=== PATIENT | male | born 1990 | race Caucasian/White ===

== ENCOUNTER 2017-03-26 18:30 | Inpatient (IN) | payer OTHER ==
[~2017-03-26] VITALS: Ht 172.7 cm; Wt 74.7 kg
[~2017-03-26 18:30] MED LIST: ADDE10XR; CLON.1; PROZ40CA; RISP1; SYNT112T
[2017-03-26 18:59] VITALS: BP 119/86; PULSE 97; RESP 20; TEMP 98.1; O2SAT 100
[2017-03-26 19:04] VITALS: BP 119/86; PULSE 108; RESP 18; TEMP 98.1; O2SAT 100
--- NOTE | 2017-03-26 19:25 | PD ---
HPI Chief Complaint: Psychiatric Symptoms Time Seen by Provider: 19:10 Travel History International Travel<30 days: No Contact w/Intl Traveler<30days: No Traveled to known affect area: No [facility] Past Medical History Diminished Hearing: No Psychiatric: Yes Tetanus Vaccination: Unknown Influenza Vaccination: No Social History Alcohol Use: No Tobacco Use: No Substance Use: No Allergies-Medications (Allergen,Severity, Reaction): Coded Allergies: Penicillin (Verified Allergy, Severe, RASH, 04/30/07) Reported Meds & Prescriptions Reported Meds & Active Scripts Active Reported Synthroid (Levothyroxine Sodium) 112 Mcg Tab Catapres (Clonidine HCl) 0.1 Mg Tab Prozac (Fluoxetine HCl) 40 Mg Cap Risperdal (Risperidone) 1 Mg Tab Adderall Xr (Amphetamine/Dextroamphetamine) 10 Mg Cap Data Data Last Documented VS Vital Signs Date Time Temp Pulse Resp B/P Pulse Ox O2 Delivery O2 Flow Rate FiO2 03/26/17 19:04 18 03/26/17 19:04 98.1 108 119/86 100 Room Air Aury Barbosa Mar 26, 2017 19:24
[2017-03-26 20:26] LABS: BASOPHIL # 0.1 TH/MM3 (0-0.2); BASOPHIL % 0.4 % (0.0-2.0); EOSINOPHIL # 0.2 TH/MM3 (0-0.4); EOSINOPHIL % 1.2 % (0.0-4.0); HEMATOCRIT 47.4 % (39.0-51.0); HEMO FLAGS DIFF FINAL; LYMPH % 13.1 % (9.0-44.0); MEAN CELL VOLUME 79.2 FL (80.0-100.0); MEAN CORPUSCULAR HEMOGLOBIN 26.8 PG (27.0-34.0); MEAN CORPUSCULAR HGB CONC 33.9 % (32.0-36.0); MONO % 7.5 % (0.0-8.0); NEUT % 77.8 % (16.0-70.0); PLATELET COUNT 276 TH/MM3 (150-450); RED BLOOD COUNT 5.99 MIL/MM3 (4.50-5.90); RED CELL DISTRIBUTION WIDTH 14.2 % (11.6-17.2); WHITE BLOOD COUNT 15.4 TH/MM3 (4.0-11.0)
[2017-03-26 20:50] LABS: ANION GAP 8 MEQ/L (5-15); AST (GOT) 16 U/L (15-37); BICARBONATE 23.6 MEQ/L (21.0-32.0); BLOOD UREA NITROGEN 14 MG/DL (7-18); CHLORIDE 110 MEQ/L (98-107); GLOMERULAR FILTRATION RATE 82 ML/MIN (>89); POTASSIUM 3.7 MEQ/L (3.5-5.1); SODIUM (NA) 142 MEQ/L (136-145)
[2017-03-26 20:51] LABS: ALT (GPT) 25 U/L (12-78)
[2017-03-26 20:53] LABS: ALKALINE PHOSPHATASE 77 U/L (45-117); TOTAL BILIRUBIN ADULT 0.7 MG/DL (0.2-1.0)
[2017-03-26 21:11] LABS: ACETAMINOPHEN LESS THAN 2.0 MCG/ML (10.0-30.0)
--- NOTE | 2017-03-26 21:20 | PD ---
HPI Chief Complaint: Psychiatric Symptoms Time Seen by Provider: 19:10 Travel History International Travel<30 days: No Contact w/Intl Traveler<30days: No Traveled to known affect area: No History of Present Illness HPI Patient is a 27 year old male who comes in because he ran away from home. He apparently went to a residential and asked for help. He has history of Aspergers and Bipolar disorder. He has stopped taking his medications a few months ago. He has no medical complaints at this time. His parents are concerned for his safety, and say that his mental status has been slowly worsening. [facility] Past Medical History Diminished Hearing: No Psychiatric: Yes Tetanus Vaccination: Unknown Influenza Vaccination: No Social History Alcohol Use: No Tobacco Use: No Substance Use: No Allergies-Medications (Allergen,Severity, Reaction): Coded Allergies: Penicillin (Verified Allergy, Severe, RASH, 04/30/07) Chicken Meat (Verified Allergy, Mild, 03/27/17) PER MOTHER Reported Meds & Prescriptions Reported Meds & Active Scripts Active Reported Risperdal (Risperidone) 1 Mg Tab 1 Mg PO DAILY PRN Olanzapine 10 Mg Tab 10 Mg PO HS Trihexyphenidyl (Trihexyphenidyl HCl) 2 Mg Tab 2 Mg PO HS Fluvoxamine (Fluvoxamine Maleate) 25 Mg Tab 25 Mg PO DAILY [place] Carbonate 600 Mg Cap 600 Mg PO HS Synthroid (Levothyroxine Sodium) 112 Mcg Tab Review of Systems Except as stated in HPI: all other systems reviewed are Neg General / Constitutional: No: Fever, Chills Eyes: No: Blurred Vision HENT: No: Headaches Cardiovascular: No: Chest Pain or Discomfort Respiratory: No: Shortness of Breath Gastrointestinal: No: Nausea, Vomiting Musculoskeletal: No: Myalgias Skin: No Rash Neurologic: No: Weakness Physical Exam Narrative GENERAL: Awake and alert, no acute distress. SKIN: Focused skin assessment warm/dry. HEAD: Atraumatic. Normocephalic. EYES: Pupils equal and round. No scleral icterus. ENT: Mucous membranes pink and moist. NECK: Trachea midline. No JVD. CARDIOVASCULAR: Regular rate and rhythm. No murmur appreciated. RESPIRATORY: No accessory muscle use. Clear to auscultation. Breath sounds equal bilaterally. GASTROINTESTINAL: Abdomen soft, non-tender, nondistended. MUSCULOSKELETAL: No obvious deformities. No clubbing. No cyanosis. No edema. NEUROLOGICAL: Awake and alert. No obvious cranial nerve deficits. Motor grossly within normal limits. Normal speech. PSYCHIATRIC: Actively insight, delusional Data Data Last Documented VS Vital Signs Date Time Temp Pulse Resp B/P Pulse Ox O2 Delivery O2 Flow Rate FiO2 03/27/17 05:29 83 18 126/75 99 Room Air 03/26/17 19:04 98.1 Orders Complete Blood Count With Diff (03/26/17 19:50) Comprehensive Metabolic Panel (03/26/17 19:50) Psych Screen (03/26/17 19:50) Drug Screen, Random Urine (03/26/17 19:50) Alcohol (Ethanol) (03/26/17 19:50) Salicylates (Aspirin) (03/26/17 19:50) Tylenol (Acetaminophen) (03/26/17 19:50) Acetaminophen (Tylenol) (03/27/17 05:45) Magnesium Hydroxide Liq (Milk Of Magnesi (03/27/17 05:45) Al-Mag Hy-Si 40-40-4 Mg/Ml Liq (Mag-Al P (03/27/17 05:45) Lorazepam (Ativan) (03/27/17 06:00) Lorazepam Inj (Ativan Inj) (03/27/17 06:00) Temazepam (Restoril) (03/27/17 06:00) Olanzapine (Zyprexa) (03/27/17 21:00) Admit Order (Ed Use Only) (03/27/17 05:48) Admit To Inpatient Psych (03/27/17 ) Vital Signs (Adult) ALFRED.Q12H.E (03/27/17 05:48) Activity Oob Ad Kathleen (03/27/17 05:48) Level Of Observation (Psych) (03/27/17 05:48) Diet Regular Basic (03/27/17 Breakfast) Lipid Profile (03/28/17 06:00) Hemoglobin (Hgb) A1c (03/28/17 06:00) Willard (Li) (03/28/17 06:00) Thyroid Stimulating Hormone (03/27/17 05:50) Free Thyroxine (T4) (03/27/17 05:50) Labs Laboratory Tests Test 03/26/17 03/26/17 20:08 20:58 White Blood Count 15.4 TH/MM3 Red Blood Count 5.99 MIL/MM3 Hemoglobin 16.1 GM/DL Hematocrit 47.4 % Mean Corpuscular Volume 79.2 FL Mean Corpuscular Hemoglobin 26.8 PG Mean Corpuscular Hemoglobin 33.9 % Concent Red Cell Distribution Width 14.2 % Platelet Count 276 TH/MM3 Mean Platelet Volume 8.4 FL Neutrophils (%) (Auto) 77.8 % Lymphocytes (%) (Auto) 13.1 % Monocytes (%) (Auto) 7.5 % Eosinophils (%) (Auto) 1.2 % Basophils (%) (Auto) 0.4 % Neutrophils # (Auto) 12.0 TH/MM3 Lymphocytes # (Auto) 2.0 TH/MM3 Monocytes # (Auto) 1.2 TH/MM3 Eosinophils # (Auto) 0.2 TH/MM3 Basophils # (Auto) 0.1 TH/MM3 CBC Comment DIFF FINAL Differential Comment Sodium Level 142 MEQ/L Potassium Level 3.7 MEQ/L Chloride Level 110 MEQ/L Carbon Dioxide Level 23.6 MEQ/L Anion Gap 8 MEQ/L Blood Urea Nitrogen 14 MG/DL Creatinine 1.07 MG/DL Estimat Glomerular Filtration 82 ML/MIN Rate Random Glucose 98 MG/DL Calcium Level 9.4 MG/DL Total Bilirubin 0.7 MG/DL Aspartate Amino Transf 16 U/L (AST/SGOT) Alanine Aminotransferase 25 U/L (ALT/SGPT) Alkaline Phosphatase 77 U/L Total Protein 7.5 GM/DL Albumin 4.3 GM/DL Salicylates Level LESS THAN 1.7 MG/DL Acetaminophen Level LESS THAN 2.0 MCG/ML Ethyl Alcohol Level LESS THAN 3 MG/DL Free Thyroxine 1.58 NG/DL Thyroid Stimulating Hormone 0.376 uIU/ML 3rd Gen Urine Opiates Screen NEG Urine Barbiturates Screen NEG Urine Amphetamines Screen NEG Urine Benzodiazepines Screen NEG Urine Cocaine Screen NEG Urine Cannabinoids Screen NEG MDM Medical Decision Making Medical Screen Exam Complete: Yes Emergency Medical Condition: Yes Medical Record Reviewed: Yes Differential Diagnosis Psychosis versus electrolyte abnormality versus drug intoxication Narrative Course Patient is a 27-year-old male who comes in and delusional state. Exam shows no acute abnormalities. Patient has no medical complaints. Labs sent show no acute abnormalities. Patient will be medically cleared for psychiatric evaluation. Disposition per psychiatry. Diagnosis Primary Impression: Psychosis Qualified Code: F29 - Psychosis, unspecified psychosis type Condition: Stable Nathaly Saavedra MD Mar 26, 2017 21:20
[2017-03-26 21:33] LABS: AMPHETAMINE, URINE NEG (NEG); BARBITURATES, URINE NEG (NEG); COCAINE, URINE NEG (NEG)
[2017-03-26 23:20] VITALS: BP 115/78; PULSE 98; RESP 18; O2SAT 99
[2017-03-27] MEDS ORDERED: LITH600C PO (05:07)
[2017-03-27] MEDS ORDERED: OLAN10TA PO (05:07)
[2017-03-27] MEDS ORDERED: FLUV25TA PO (05:07)
[2017-03-27] MEDS ORDERED: TRIH2 PO (05:07)
[2017-03-27] MEDS ORDERED: RISP1 PO (05:07)
[2017-03-27 05:29] VITALS: BP 126/75; PULSE 83; RESP 18; O2SAT 99
[2017-03-27] MEDS ORDERED: ACETAMINOPHEN 325 MG TAB PO PRN (05:45)
[2017-03-27] MEDS ORDERED: ALUMINUM/MAGNESIUM/SIMETH 30 ML CUP PO PRN (05:45)
[2017-03-27] MEDS ORDERED: MAGNESIUM HYDROXIDE SUSP 30 ML CUP PO PRN (05:45)
[2017-03-27] MEDS ORDERED: LORazepam 2 MG/ML VIAL IM PRN (06:00)
[2017-03-27 07:00] VITALS: BP 122/83; PULSE 74; RESP 18; TEMP 98; O2SAT 100
[2017-03-27 07:18] LABS: FREE T4 1.58 NG/DL (0.76-1.46)
[2017-03-27 08:57] VITALS: BP 122/83; PULSE 74; RESP 18; TEMP 98; O2SAT 100
[2017-03-27] MEDS ORDERED: fluvoxaMINE MALEATE 50 MG TAB PO SCH (09:00)
[2017-03-27] MEDS: LORazepam 1 MG TAB PO PRN ×2 (10:34→20:58)
[2017-03-27 17:39] VITALS: BP 121/77; PULSE 97; RESP 18; TEMP 98.8; O2SAT 99
--- NOTE | 2017-03-27 19:33 | MH ---
cc: DIXIE ROBERTSON DATE OF ADMISSION 03/27/2017 PRESENTING CHIEF COMPLAINT AND HISTORY OF PRESENT ILLNESS This 27-year-old white male was brought to the emergency room voluntarily because of increasing agitation, delusions. He reportedly carries a diagnosis of "bipolar affective disorder, Asperger's" and had stopped taking his medications three months ago without his parents knowledge and reportedly has been decompensating. He took off from home and knocked at the door of a alf who called for assistance and he was brought to the emergency room of this hospital where the Bush Act was initiated by the emergency room physician. In the emergency room, he was evaluated by psychiatric screener and was observed to be very disorganized, rambling, somewhat agitated, hyper-verbal and delusional believing that his medications were poisoned, etc. The case was discussed with me and it was felt he needed to be hospitalized for further assessment and treatment. Prior to this evaluation, case was discussed with the nursing staff who indicated initially upon admission he was somewhat agitated and was given injection of Ativan to which he responded well. He has not exhibited any aggressive or self-destructive behavior nor has he made any threats of harm to self or others. Electronic medical records were reviewed. He has no history of admission to this unit. At the time of this evaluation. Mr. Corrigan was calm, although hyper-verbal, over elaborate in his responses to questions. When asked about his understanding of the reason for this hospitalization, he responded "I knocked at the door of a alf. I show them ,my identity and asked for help". He vaguely mentioned that he had arguments with his mother and stepfather with whom he lives because "I felt they were kind of abusing me because my mom said that I had to live by her rules so I took off". However, he later mentioned that since being in the hospital he has realized that if he was to live in their home he has to follow their rules. He could not identify clearly as to what rules he found difficult to follow at home. He acknowledged that he had discontinued all his medications about three months ago. When asked what the reason, he was quite vague "I could be happier, but they were making me like I had no emotions. I was like a vegetable". When further explored, he reluctantly acknowledged experiencing "mood swings" which he was initially quite vague but when pursued he described them as follows: "Sometimes I am high like up there. I talk too much. I feel very happy like my mind is going too fast and then I am down there. That is when I do not feel like doing anything. I feel sad. I cry. Crying is not bad because it lets your emotion out. Am I right?". He denied ever experiencing delusions, hypersexuality, spending sprees or auditory hallucinations during "the highs". When asked as to how he has been feeling lately, he stated "kind of high, but not manicky". He acknowledged that he has not been sleeping too well "I have been sleeping only a few hours". He denied any change in his appetite, memory or concentration. He denied ever entertaining suicidal or homicidal ideations. He denied any previous suicide attempt or any history of violence. Further exploration did not reveal any other significant psychosocial stressors. PAST PSYCHIATRIC HISTORY His first psychiatric intervention was when he was 9 years old for what he described as "ADHD" for which he was put on a stimulant. According to him, this made his mood swings worse and he discontinued it. He denied any previous psychiatric hospitalization. He was also very vague about the outpatient psychiatric followup. He stated that he has been on his current medications, i.e., lithium, Zyprexa, Risperdal, Luvox and Artane for over 10 years but claimed that they have been managed by his primary care physician. He could not give any clear explanation as to why he has not been under psychiatric treatment all these years. PAST MEDICAL HISTORY He has history of hypothyroidism for which he is on Synthroid 112 mcg daily. He denied any other known medical illness. Specifically, he denied any history of cardiac problem, head injury or seizures. He is ALLERGIC TO PENICILLIN and CHICKEN MEAT. MEDICATIONS Prior to admission, 1. Risperdal 1 mg daily p.r.n. 2. Zyprexa 10 mg p.o. q.h.s. 3. Trihexyphenidyl 2 mg q.h.s. 4. Luvox 25 mg daily. 5. [place] carbonate 600 mg p.o. q.h.s., 6. Synthroid 112 mcg daily. FAMILY HISTORY His parents when he was 4 years old. His mother remarried when he was 12 years old. His mother is a professor at [employer] and his stepfather is a salesman. He has two half brothers and one full sister. According to him, his biological father suffers from "bipolar" and his mother suffers from "depression". He denied any family history of substance abuse. PERSONAL AND SOCIAL HISTORY He grew up in [place] and, after finishing high school, obtained a bachelor's degree. He does not have much of a work history except for four months he worked for [employer] in [place]. He denied being on disability. He lives with his mother and stepfather who support him. He denied any alcohol or drug abuse. He denied any history of physical or sexual trauma. He denied any history of involvement with the law. CLINICAL OBSERVATION/MENTAL STATUS EXAM At the time of this evaluation, Mr. Corrigan presented as a somewhat poorly groomed, unkempt white male who looked his stated age. He displayed poor eye contact and talked in a soft monotonous voice. His responses to questions were over-elaborate and overinclusive and, as such, direct questions had to be asked to obtain specific information from him. No psychomotor agitation was noticed at this time. No overt anger or hostility was noticed. His affect was blunted, appropriate. Subjectively, he described his mood as "I have been up there but not manicky". Thought processes revealed circumstantiality and tangentiality. As described earlier, he remains delusional about medication being poistoned. No auditory or visual hallucinations were noticed or reported. He denied any suicidal or homicidal ideations or intent at this time. He denied any previous suicide attempts or any history of violence. Cognitive functions - he was alert, oriented to time, place, person and situation. Memory - immediate he could do 5 digits forward, 4 digits backward. Recent he could recall 3/3 objects after 10 minutes. Remote he could recall presidents up to President Obama. His attention and concentration was good. He could do serial sevens all the way up to two. His judgment and insight was felt to be fair. REVIEW OF SYSTEMS He denied any diarrhea, vomiting or abdominal pain. He denied any dysuria, hematuria or frequency. He denied any chest pain, palpitation, dyspnea on exertion. He denied muscle weakness, numbness or any history of seizures. PHYSICAL EXAMINATION Physical examination was not done as this has been done in the emergency room. No acute medical issues identified. No gross neurological deficits noticed at this time. DIAGNOSTIC IMPRESSION [place] I: Bipolar affective disorder, hypomanic phase. [place] II: Asperger's syndrome. [place] III: Hypothyroidism. [place] IV: Severity of psychosocial stressors moderate i.e. chronic psychiatric illness, limited financial resources. [place] V: Current GAF score 40. FORMULATION AND TREATMENT PLAN Based on this evaluation and the background information available to me at this time, Mr. Corrigan is exhibiting hypomanic phase of bipolar affective disorder as evidenced by psychomotor agitation, hyperverbosity, racing thoughts, circumstantiality and tangentiality, delusions. His current decompensation is due to noncompliance with medications. He was thoroughly educated about the role of medications in his overall treatment plan, especially to prevent rehospitalization. He seemed to understand and accepted to continue on them. As such, he will be restarted on lithium and Zyprexa. Luvox will be discontinued. Simultaneously, he will be involved in individual psychotherapy primarily supportive and educative in nature. He will participate in various other unit activities i.e. occupational therapy, recreational therapy, group therapy. IDENTIFIED PROBLEMS 1. Psychosis. 2. Noncompliance. ASSETS 1. He is verbal. 2. Reasonably good physical health. 3. Supportive parents. His estimated length of stay is 5-7 days. MD RENA Charles/ /6:27 PM /7:01 PM
[2017-03-27] MEDS: OLANZapine 10 MG TAB PO SCH (20:57)
[2017-03-27] MEDS: LITHIUM CARBONATE 300 MG CAP PO SCH (20:58)
[2017-03-27] MEDS ORDERED: LITHIUM CARBONATE 300 MG CAP PO SCH (21:00)
[2017-03-28] MEDS: LEVOTHYROXINE SODIUM 112 MCG TAB PO SCH (05:46)
[2017-03-28 06:56] VITALS: BP 101/56; PULSE 65; RESP 16; TEMP 98.2; O2SAT 100
[2017-03-28] MEDS: LITHIUM CARBONATE 300 MG CAP PO SCH ×2 (08:47→21:04)
[2017-03-28 17:00] VITALS: BP 129/77; PULSE 95; RESP 17; TEMP 97.4; O2SAT 99
[2017-03-28] MEDS: OLANZapine 10 MG TAB PO SCH (21:00)
[2017-03-29] MEDS: LEVOTHYROXINE SODIUM 112 MCG TAB PO SCH (05:30)
[2017-03-29 06:07] VITALS: BP 112/55; PULSE 81; RESP 18; TEMP 97.2; O2SAT 100
[2017-03-29 08:54] LABS: HDL CHOLESTEROL 43.4 MG/DL (40.0-60.0); LDL CHOLESTEROL 69 MG/DL (0-99)
[2017-03-29] MEDS: LITHIUM CARBONATE 300 MG CAP PO SCH ×2 (09:26→21:30)
[2017-03-29 16:33] LABS: HEMOGLOBIN A1a 0.9 %; HEMOGLOBIN A1b 1.6 %; HEMOGLOBIN Ao 86.7 %; HEMOGLOBIN LA1C 1.7 %; HEMOGLOBIN P3 3.5 %
[2017-03-29 17:05] VITALS: BP 137/67; PULSE 99; RESP 18; TEMP 98.7; O2SAT 98
[2017-03-29] MEDS: OLANZapine 10 MG TAB PO SCH (21:30)
[2017-03-29] MEDS: LORazepam 1 MG TAB PO PRN (22:47)
[2017-03-29] MEDS: TEMAZEPAM 15 MG CAP PO PRN (22:50)
[2017-03-30 06:07] VITALS: BP 122/71; PULSE 87; RESP 16; TEMP 97.9; O2SAT 100
[2017-03-30] MEDS: LEVOTHYROXINE SODIUM 112 MCG TAB PO SCH (06:12)
[2017-03-30] MEDS: LITHIUM CARBONATE 300 MG CAP PO SCH ×2 (08:11→21:23)
--- NOTE | 2017-03-30 08:44 | PD.PSY.CON ---
Provisional Diagnosis Admission Date Mar 27, 2017 at 05:51 [place] I. 1. Bipolar disorder, presently manic [place] II. 1. Asperger's disorder [place] V. GAF is 30 presently History of Present Illness Service Psychiatry Consult Requested By Dr. Saeed Reason for Consult Second opinion for involuntary psychiatric hospitalization Primary Care Physician DO [place] Mr. Corrigan is a 27-year-old male with a reported history of bipolar illness and Asperger's disorder who presented to the emergency department after running away from home. ED provider's note indicates that the patient has been nonadherent with medications. Patient is presently admitted under the service of Dr. Saeed, and I have reviewed his documentation. Electronic medical record reviewed; no previous psychiatric contact noted within our system. Patient seen and examined. Chart reviewed. On my examination today, patient presents with pressured, rambling, over inclusive speech. He is somewhat socially awkward, and for example he sits all the way across the room during the interview although there are closer seats available. He says that he came in because he was feeling "anxiety, paranoia, the only way to freedom was getting away from home. I didn't see any other alternative." He does not describe any visual hallucinations but is vague regarding auditory phenomena. He does say that he can "hear stuff behind closed doors without trying to listen." He denies any suicidal or homicidal ideation but says "if someone wanted me , a bullet" could come through this window into his head. Paranoia present. He tells me, "people are going to hurt people behind my back. " Sleep reportedly poor. Neologisms noted. The remainder of the psychiatric ROS is negative. Past psychiatric history: The patient reports a history of bipolar disorder and Asperger's. He is not currently under the care of a psychiatrist he tells me. He denies a history of psychiatric admissions. He reports multiple prior suicide attempts most recently by trying to cut himself with a knife. He launches into an extensive discussion about how to complete suicide by knife. Family history: Patient reports a family history of cluster B personality disorder in his father's side of his family. He says that the autism spectrum disorders run in his mother's side. Chemical dependency history: The patient denies any history of abuse of drugs or alcohol. Social history: The patient reports that he is second in the order. He is unemployed. He has a bachelors in public management and plans to enter into graduate school. He is single with no children. 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 Review of Systems ROS Limitations: Poor Historian Except as stated in HPI: all other systems reviewed are Neg Past Family Social History Coded Allergies: Penicillin (Verified Allergy, Severe, RASH, 04/30/07) Chicken Meat (Verified Allergy, Mild, 03/27/17) PER MOTHER Past Medical History See electronic medical record Reported Medications Risperidone (Risperdal)1 Mg Tab1 Mg PO DAILY PRN (PRN) #30 TAB Ref 0 03/27/17 Olanzapine 10 Mg Tab10 Mg PO HS #60 TAB Ref 0 03/27/17 Trihexyphenidyl 2 Mg Tab2 Mg PO HS #60 TAB Ref 0 03/27/17 Fluvoxamine 25 Mg Tab25 Mg PO DAILY #30 TAB Ref 0 03/27/17 [place] Carbonate 600 Mg [id number] Mg PO HS Ref 0 03/27/17 Levothyroxine Sodium (Synthroid)112 Mcg Tab 04/30/07 Discontinued Reported Medications Clonidine 0.1 mg (Catapres 0.1 mg)0.1 Mg Tab 04/30/07 Fluoxetine Hcl (Prozac)40 Mg Cap 04/30/07 Risperidone (Risperdal)1 Mg Tab 04/30/07 Adderall XR 10 mg 10 Mg Cap 04/30/07 Current Medications Medications (Trade) Dose Ordered Sig/Berta Route Start Time Stop Time Status Last Admin (Tylenol) 650 mg Q4H PRN PO 03/27/17 05:45 (Milk Of Magnesia Liq) 30 ml DAILY PRN PO 03/27/17 05:45 (Mag-Al Plus Susp Liq) 30 ml Q6H PRN PO 03/27/17 05:45 (Ativan) 1 mg Q4H PRN PO 03/27/17 06:00 03/29/17 22:47 (Ativan Inj) 1 mg Q4H PRN IM 03/27/17 06:00 03/27/17 10:55 (Restoril) 30 mg HS PRN PO 03/27/17 06:00 03/29/17 22:50 (ZyPREXA) 10 mg HS PO 03/27/17 21:00 03/29/17 21:30 (Synthroid) 112 mcg DAILY@06 PO 03/28/17 06:00 03/30/17 06:12 ([place] Carbonate) 300 mg BID PO 03/27/17 21:00 03/30/17 08:11 Family History See above Social History See above Patient's Strengths (min. 2) In monitored setting. Verbally fluent. Physical Exam Physical exam completed by ED provider. On my examination today, patient appears to be in no acute physical distress. No motor abnormalities noted. Laboratories and vital signs reviewed: Vital Signs Vital Signs Date Time Temp Pulse Resp B/P Pulse Ox O2 Delivery O2 Flow Rate FiO2 03/30/17 06:07 97.9 87 16 122/71 100 03/27/17 05:29 Room Air Lab Results Item Value Date Time White Blood Count 15.4 TH/MM3 H 03/26/172007 Hemoglobin 16.1 GM/DL 03/26/172007 Platelet Count 276 TH/MM3 03/26/172007 Sodium Level 142 MEQ/L 03/26/172007 Potassium Level 3.7 MEQ/L 03/26/172007 Chloride Level 110 MEQ/L H 03/26/172007 Carbon Dioxide Level 23.6 MEQ/L 03/26/172007 Blood Urea Nitrogen 14 MG/DL 03/26/172007 Creatinine 1.07 MG/DL 03/26/172007 Hemoglobin A1c 5.2 % 03/29/1718 Aspartate Amino Transf (AST/SGOT) 16 U/L 03/26/172007 Alanine Aminotransferase (ALT/SGPT) 25 U/L 03/26/172007 Alkaline Phosphatase 77 U/L 03/26/172007 Thyroid Stimulating Hormone 3rd Gen 0.376 uIU/ML 03/26/172007 Free Thyroxine 1.58 NG/DL H 03/26/172007 [place] Level 0.3 MEQ/L L 03/29/1718 Toxicology negative. Mental Status Examination Patient is casually dressed. He is mildly disheveled but maintaining basic hygiene. He is awake and alert and oriented to person and hospital at least. No motor abnormalities noted. Speech is somewhat pressured and rambling. Language and fund of knowledge seem average. Focus and concentration somewhat scattered. Memory grossly intact on clinical exam. Mood is somewhat anxious and affect is mildly expansive. Thought process circumstantial, at times tangential with some loosening of associations. Paranoia present. Patient describes some possible auditory hallucinations or illusions. No visual or other hallucinatory material. Denies suicidal or homicidal ideation but seems unreliable to contract for safety in his present state. Insight and judgment are poor. Assessment & Plan Problem List: (1) Bipolar affective disorder, manic, mild ICD Code: F31.11 (2) Asperger's disorder ICD Code: F84.5 Assessment & Plan Given the circumstances of the patient's presentation here and his presentation on my examination today and looking at the totality of the case, I concur with Dr. Saeed that the patient meets criteria for involuntary psychiatric hospitalization under the Bush act. I have completed the second opinion paperwork. Further care as per Dr. Saeed. Thank you very much for this consultation. Signing off. Usama Noguera MD Mar 30, 2017 08:44
[2017-03-30] MEDS: LORazepam 1 MG TAB PO PRN (14:10)
[2017-03-30 15:31] VITALS: BP 130/74; PULSE 98; RESP 18; TEMP 98.5; O2SAT 100
[2017-03-30] MEDS: OLANZapine 10 MG TAB PO SCH (21:00)
[2017-03-30] MEDS: TEMAZEPAM 15 MG CAP PO PRN (21:23)
[2017-03-31] MEDS: LEVOTHYROXINE SODIUM 112 MCG TAB PO SCH (05:49)
[2017-03-31 06:04] VITALS: BP 103/56; PULSE 55; RESP 18; TEMP 96.9; O2SAT 100
[2017-03-31] MEDS: LITHIUM CARBONATE 300 MG CAP PO SCH ×2 (08:47→20:52)
--- NOTE | 2017-03-31 14:21 | PD.TTN ---
Present for Treatment Team Treatment Team Staff: Provider (), Nurse (Ronak), Psych Therapist ( Brianna), Occupational Therapist (Dayday ) Patient Problems 1. Discharge planning 2. Medication compliance 3. Knowledge deficit 4. Lack of coping skills Progress Toward Goals Provider Input: Patient has been compliant with medications and showing signs of insight with his diagnosis. Patient is able to identify his paranoia and how he is going to resolves his issues. Patient does present argumentative and is notes that he may not be compliant with his medications after discharge. Patient is focused on discharge and makes that he will make his case in court tomorrow and firmly believes he will discharge. Nurse Input: Patient has been compliant with his medications. There was an issue with his swallowing prior but since it has been resolved, he has no issues taking medications. Patient has no behavioral issues on the unit but it is noted that patient does get somewhat agitated when disagreed with. Psych Therapist Input: Patient is hyperverbal but shows some insight upon his admission. Patient says that he is willing to combat his issues of paranoia with coping skills, like deep breathing and counting to 10. Patint does not seem to believe that he needs medication, though he states his mood is increasing everyday. Patient becomes agitated with MD when discussing possible stay until weekend. Occupational Therapist Input: Patient attends group but needs constant redirection. patient is hyperverbal. Brianna Tejeda RMI Mar 31, 2017 14:21
[2017-03-31 18:09] VITALS: BP 120/74; PULSE 84; RESP 18; TEMP 98; O2SAT 99
[2017-03-31] MEDS: OLANZapine 10 MG TAB PO SCH (20:52)
[2017-04-01] MEDS: LORazepam 1 MG TAB PO PRN (02:41)
[2017-04-01 05:22] VITALS: BP 116/69; PULSE 106; RESP 18; TEMP 98.3; O2SAT 99
[2017-04-01] MEDS: LEVOTHYROXINE SODIUM 112 MCG TAB PO SCH (05:26)
[2017-04-01] MEDS: LITHIUM CARBONATE 300 MG CAP PO SCH ×2 (09:19→21:30)
[2017-04-01 12:16] LABS: AUTOMATED NEUTROPHIL # 8.4 TH/MM3 (1.8-7.7); BASOPHIL # 0.1 TH/MM3 (0-0.2); BASOPHIL % 0.5 % (0.0-2.0); EOSINOPHIL # 0.1 TH/MM3 (0-0.4); EOSINOPHIL % 1.2 % (0.0-4.0); HEMATOCRIT 48.4 % (39.0-51.0); LYMPH % 11.6 % (9.0-44.0); LYMPHOCYTE # 1.2 TH/MM3 (1.0-4.8); MEAN CELL VOLUME 80.9 FL (80.0-100.0); MEAN CORPUSCULAR HEMOGLOBIN 26.5 PG (27.0-34.0); MEAN CORPUSCULAR HGB CONC 32.8 % (32.0-36.0); MONO % 6.7 % (0.0-8.0); PLATELET COUNT 249 TH/MM3 (150-450); RED BLOOD COUNT 5.98 MIL/MM3 (4.50-5.90); RED CELL DISTRIBUTION WIDTH 13.9 % (11.6-17.2); WHITE BLOOD COUNT 10.5 TH/MM3 (4.0-11.0)
[2017-04-01 12:50] LABS: HEMO FLAGS AUTO DIFF
[2017-04-01 12:55] LABS: PLATELET ESTIMATE SMEAR NORMAL (NORMAL); PLATELET MORPHOLOGY CLUMPED (NORMAL); SCAN/DIFF AUTO DIFF CONFIRMED
[2017-04-01 14:18] LABS: ALT (GPT) 26 U/L (12-78); ANION GAP 6 MEQ/L (5-15); AST (GOT) 16 U/L (15-37); BICARBONATE 27.1 MEQ/L (21.0-32.0); BLOOD UREA NITROGEN 12 MG/DL (7-18); CHLORIDE 109 MEQ/L (98-107); GLOMERULAR FILTRATION RATE 106 ML/MIN (>89); POTASSIUM 4.3 MEQ/L (3.5-5.1); SODIUM (NA) 142 MEQ/L (136-145)
[2017-04-01 14:20] LABS: ALKALINE PHOSPHATASE 68 U/L (45-117); TOTAL BILIRUBIN ADULT 0.5 MG/DL (0.2-1.0)
[2017-04-01 18:00] VITALS: BP 110/68; PULSE 80; RESP 18; TEMP 98.6; O2SAT 99
[2017-04-01] MEDS: OLANZapine 10 MG TAB PO SCH (21:00)
[2017-04-01] MEDS: TEMAZEPAM 15 MG CAP PO PRN (21:29)
[2017-04-02] MEDS: LEVOTHYROXINE SODIUM 112 MCG TAB PO SCH (05:31)
[2017-04-02 05:35] VITALS: BP 102/66; PULSE 94; RESP 18; TEMP 98.1; O2SAT 98
[2017-04-02] MEDS: LITHIUM CARBONATE 300 MG CAP PO SCH ×3 (08:55→17:34)
[2017-04-02 18:00] VITALS: BP 154/86; RESP 16; O2SAT 98
[2017-04-02] MEDS: OLANZapine 10 MG TAB PO SCH (21:00)
[2017-04-03 05:30] VITALS: BP 106/62; PULSE 92; RESP 18; TEMP 97.7; O2SAT 100
[2017-04-03] MEDS: LEVOTHYROXINE SODIUM 112 MCG TAB PO SCH (06:00)
[2017-04-03] MEDS: LITHIUM CARBONATE 300 MG CAP PO SCH (08:40)
[2017-04-03] MEDS: MULTIVITAMIN TAB PO SCH (13:12)
[2017-04-03] MEDS: LITHIUM ORAL SOLUTION 300 MG/5 ML CUP PO SCH ×2 (13:12→18:17)
[2017-04-03 18:41] VITALS: BP 120/68; PULSE 81; RESP 16; TEMP 98.1; O2SAT 99
[2017-04-03] MEDS: OLANZapine 10 MG TAB PO SCH (21:00)
[2017-04-03] MEDS: TEMAZEPAM 15 MG CAP PO PRN (21:38)
[2017-04-04 06:18] VITALS: BP 106/66; PULSE 88; RESP 17; TEMP 98.1; O2SAT 100
[2017-04-04] MEDS: LEVOTHYROXINE SODIUM 112 MCG TAB PO SCH (06:28)
[2017-04-04] MEDS: MULTIVITAMIN TAB PO SCH (08:56)
[2017-04-04] MEDS: LITHIUM ORAL SOLUTION 300 MG/5 ML CUP PO SCH ×4 (08:57→18:00)
[2017-04-04 15:27] VITALS: BP 112/59; PULSE 84; RESP 18; TEMP 98.7; O2SAT 100
[2017-04-04] MEDS: OLANZapine 10 MG TAB PO SCH (21:00)
[2017-04-05] MEDS: LEVOTHYROXINE SODIUM 112 MCG TAB PO SCH (06:00)
[2017-04-05 06:35] VITALS: BP 106/57; PULSE 65; RESP 16; TEMP 97.6; O2SAT 97
[2017-04-05] MEDS: MULTIVITAMIN TAB PO SCH (09:27)
[2017-04-05] MEDS: LITHIUM ORAL SOLUTION 300 MG/5 ML CUP PO SCH ×3 (09:28→17:29)
[2017-04-05 17:10] VITALS: BP 113/72; PULSE 82; RESP 18; TEMP 99.5; O2SAT 100
[2017-04-05] MEDS: LORazepam 0.5 MG TAB PO SCH (20:48)
[2017-04-05] MEDS: OLANZapine 10 MG TAB PO SCH (21:00)
[2017-04-06 05:56] VITALS: BP 105/63; PULSE 75; RESP 18; TEMP 98.7
[2017-04-06] MEDS: LEVOTHYROXINE SODIUM 112 MCG TAB PO SCH (06:00)
[2017-04-06] MEDS: MULTIVITAMIN TAB PO SCH (08:35)
[2017-04-06] MEDS: LITHIUM ORAL SOLUTION 300 MG/5 ML CUP PO SCH ×3 (08:35→17:49)
[2017-04-06] MEDS: LORazepam 0.5 MG TAB PO SCH ×2 (08:35→20:58)
[2017-04-06 18:00] VITALS: BP 111/61; PULSE 86; RESP 17; TEMP 98; O2SAT 100
[2017-04-06] MEDS: TEMAZEPAM 15 MG CAP PO PRN (20:58)
[2017-04-06] MEDS: OLANZapine 10 MG TAB PO SCH (20:58)
[2017-04-07 05:27] VITALS: BP 99/58; PULSE 56; RESP 16; TEMP 98.1; O2SAT 97
[2017-04-07] MEDS: LEVOTHYROXINE SODIUM 112 MCG TAB PO SCH (06:10)
[2017-04-07 07:04] LABS: ALT (GPT) 26 U/L (12-78); ANION GAP 6 MEQ/L (5-15); AST (GOT) 10 U/L (15-37); AUTOMATED NEUTROPHIL # 4.4 TH/MM3 (1.8-7.7); BASOPHIL % 0.6 % (0.0-2.0); BICARBONATE 29.3 MEQ/L (21.0-32.0); BLOOD UREA NITROGEN 10 MG/DL (7-18); CHLORIDE 108 MEQ/L (98-107); EOSINOPHIL # 0.4 TH/MM3 (0-0.4); EOSINOPHIL % 5.4 % (0.0-4.0); GLOMERULAR FILTRATION RATE 103 ML/MIN (>89); HEMATOCRIT 47.1 % (39.0-51.0); HEMO FLAGS DIFF FINAL; LYMPH % 23.2 % (9.0-44.0); LYMPHOCYTE # 1.6 TH/MM3 (1.0-4.8); MEAN CELL VOLUME 82.4 FL (80.0-100.0); MEAN CORPUSCULAR HGB CONC 32.8 % (32.0-36.0); NEUT % 62.8 % (16.0-70.0); PLATELET COUNT 222 TH/MM3 (150-450); POTASSIUM 4.2 MEQ/L (3.5-5.1); RED BLOOD COUNT 5.72 MIL/MM3 (4.50-5.90); SODIUM (NA) 143 MEQ/L (136-145); WHITE BLOOD COUNT 7.1 TH/MM3 (4.0-11.0)
[2017-04-07 07:06] LABS: ALKALINE PHOSPHATASE 63 U/L (45-117); TOTAL BILIRUBIN ADULT 0.3 MG/DL (0.2-1.0)
[2017-04-07] MEDS: LITHIUM ORAL SOLUTION 300 MG/5 ML CUP PO SCH ×4 (08:49→21:28)
[2017-04-07] MEDS: MULTIVITAMIN TAB PO SCH (08:50)
[2017-04-07] MEDS: LORazepam 0.5 MG TAB PO SCH ×2 (08:50→21:27)
--- NOTE | 2017-04-07 13:41 | PD.TTN ---
Present for Treatment Team Treatment Team Staff: Provider (Dr. Saeed), Nurse, Psych Therapist (Brianna), Occupational Therapist (Dayday) Patient Problems 1. Discharge planning 2. Medication compliance 3. Knowledge deficit 4. Lack of coping skills Progress Toward Goals Provider Input: Patient is needing psychiatric appointment upon discharge. Patient also is becoming more stablized on medication adjustment. Patient is less hyperverbal and is having more tangetnail and organized thoughts. Psych Therapist Input: Patient is noted to be more calm and is able to organize his thoughts. Patient is still semi compliant with proceeding with his medications after his discharge. Patient was educated on the need to continue to take his medications. Patient states that he is using the support from family and friends to help. Patient is cooperative and calm and needs some redirection. Occupational Therapist Input: Patient actively participates in group and needs some redirection. Brianna Tejeda RMI Apr 07, 2017 13:41
[2017-04-07 18:00] VITALS: BP 120/61; PULSE 96; RESP 17; TEMP 98.2; O2SAT 100
[2017-04-07] MEDS: OLANZapine 10 MG TAB PO SCH (21:00)
[2017-04-08 05:59] VITALS: BP 129/74; PULSE 84; RESP 16; TEMP 97.7; O2SAT 94
[2017-04-08] MEDS: LEVOTHYROXINE SODIUM 112 MCG TAB PO SCH (06:20)
[2017-04-08] MEDS: MULTIVITAMIN TAB PO SCH (08:27)
[2017-04-08] MEDS: LORazepam 0.5 MG TAB PO SCH ×2 (08:27→21:40)
[2017-04-08] MEDS: LITHIUM ORAL SOLUTION 300 MG/5 ML CUP PO SCH ×3 (08:28→21:40)
[2017-04-08 18:00] VITALS: BP 115/62; PULSE 87; RESP 18; TEMP 98.1; O2SAT 100
[2017-04-08] MEDS: OLANZapine 10 MG TAB PO SCH (21:00)
[2017-04-08] MEDS: TEMAZEPAM 15 MG CAP PO PRN (21:40)
[2017-04-09 05:32] VITALS: BP 98/62; PULSE 60; RESP 16; TEMP 98; O2SAT 98
[2017-04-09] MEDS: LEVOTHYROXINE SODIUM 112 MCG TAB PO SCH (06:32)
[2017-04-09] MEDS: LORazepam 0.5 MG TAB PO SCH ×2 (08:52→21:33)
[2017-04-09] MEDS: LITHIUM ORAL SOLUTION 300 MG/5 ML CUP PO SCH ×3 (08:52→21:34)
[2017-04-09] MEDS: MULTIVITAMIN TAB PO SCH (08:52)
[2017-04-09 15:55] VITALS: BP 114/59; PULSE 75; RESP 16; TEMP 98.6; O2SAT 98
[2017-04-09] MEDS: OLANZapine 10 MG TAB PO SCH (21:00)
[2017-04-10 05:32] VITALS: BP_SYST 96; BP_SYST 98; BP_DIAS 53; BP_DIAS 56; PULSE 57; PULSE 72; RESP 16; RESP 18; TEMP 97.9; O2SAT 100; O2SAT 97
[2017-04-10] MEDS: LEVOTHYROXINE SODIUM 112 MCG TAB PO SCH (05:47)
[2017-04-10] MEDS: LORazepam 0.5 MG TAB PO SCH ×2 (09:07→20:57)
[2017-04-10] MEDS: MULTIVITAMIN TAB PO SCH (09:07)
[2017-04-10] MEDS: LITHIUM ORAL SOLUTION 300 MG/5 ML CUP PO SCH ×3 (09:08→20:57)
[2017-04-10 18:00] VITALS: BP 105/59; PULSE 87; RESP 16; TEMP 98.6; O2SAT 100
[2017-04-10] MEDS: OLANZapine 10 MG TAB PO SCH (20:58)
[2017-04-11 05:31] VITALS: BP 97/66; PULSE 85; RESP 18; TEMP 96.4; O2SAT 97
[2017-04-11] MEDS: LEVOTHYROXINE SODIUM 112 MCG TAB PO SCH (06:10)
[2017-04-11] MEDS: MULTIVITAMIN TAB PO SCH (08:52)
[2017-04-11] MEDS: LITHIUM ORAL SOLUTION 300 MG/5 ML CUP PO SCH ×3 (08:53→21:30)
[2017-04-11] MEDS: LORazepam 0.5 MG TAB PO SCH (08:53)
[2017-04-11 18:00] VITALS: BP 130/76; PULSE 107; RESP 18; TEMP 98.1; O2SAT 98
[2017-04-11] MEDS: OLANZapine 10 MG TAB PO SCH (21:00)
[2017-04-11 21:06] LABS: FREE T4 0.99 NG/DL (0.76-1.46)
[2017-04-12 05:15] VITALS: BP 115/70; PULSE 66; RESP 16; TEMP 97.8; O2SAT 97
[2017-04-12] MEDS: LEVOTHYROXINE SODIUM 112 MCG TAB PO SCH (06:14)
[2017-04-12] MEDS: LITHIUM ORAL SOLUTION 300 MG/5 ML CUP PO SCH ×3 (08:15→21:24)
[2017-04-12] MEDS: MULTIVITAMIN TAB PO SCH (08:15)
[2017-04-12 09:26] LABS: ANION GAP 3 MEQ/L (5-15); AST (GOT) 19 U/L (15-37); BICARBONATE 29.7 MEQ/L (21.0-32.0); BLOOD UREA NITROGEN 11 MG/DL (7-18); CHLORIDE 106 MEQ/L (98-107); GLOMERULAR FILTRATION RATE 93 ML/MIN (>89); POTASSIUM 4.1 MEQ/L (3.5-5.1); SODIUM (NA) 139 MEQ/L (136-145)
[2017-04-12 09:28] LABS: ALT (GPT) 34 U/L (12-78)
[2017-04-12 09:30] LABS: ALKALINE PHOSPHATASE 74 U/L (45-117); TOTAL BILIRUBIN ADULT 0.3 MG/DL (0.2-1.0)
[2017-04-12 12:01] LABS: ALT (GPT) 35 U/L (12-78); ANION GAP 5 MEQ/L (5-15); AST (GOT) 19 U/L (15-37); BICARBONATE 28.8 MEQ/L (21.0-32.0); BLOOD UREA NITROGEN 12 MG/DL (7-18); CHLORIDE 108 MEQ/L (98-107); GLOMERULAR FILTRATION RATE 104 ML/MIN (>89); POTASSIUM 4.1 MEQ/L (3.5-5.1); SODIUM (NA) 142 MEQ/L (136-145)
[2017-04-12 12:03] LABS: ALKALINE PHOSPHATASE 72 U/L (45-117); TOTAL BILIRUBIN ADULT 0.2 MG/DL (0.2-1.0)
[2017-04-12 15:47] VITALS: BP 117/72; PULSE 69; RESP 18; TEMP 98.1; O2SAT 98
[2017-04-12 18:00] VITALS: BP 117/72; PULSE 69; RESP 18; TEMP 98.1; O2SAT 98
[2017-04-12] MEDS: OLANZapine 10 MG TAB PO SCH (21:00)
[2017-04-13] MEDS: LEVOTHYROXINE SODIUM 100 MCG TAB PO SCH (05:59)
[2017-04-13 06:00] VITALS: BP 91/51; PULSE 59; RESP 20; TEMP 98.2; O2SAT 98
[2017-04-13] MEDS: MULTIVITAMIN TAB PO SCH (09:16)
[2017-04-13] MEDS: LITHIUM ORAL SOLUTION 300 MG/5 ML CUP PO SCH ×3 (09:16→21:56)
[2017-04-13 18:00] VITALS: BP 115/57; PULSE 79; RESP 18; TEMP 98.2; O2SAT 99
[2017-04-13] MEDS: OLANZapine 10 MG TAB PO SCH (21:00)
[2017-04-14] MEDS: LEVOTHYROXINE SODIUM 100 MCG TAB PO SCH (06:07)
[2017-04-14 06:15] VITALS: BP 98/53; PULSE 57; RESP 18; TEMP 97.9; O2SAT 99
[2017-04-14] MEDS: LITHIUM ORAL SOLUTION 300 MG/5 ML CUP PO SCH ×3 (08:40→20:31)
[2017-04-14] MEDS: MULTIVITAMIN TAB PO SCH (08:40)
--- NOTE | 2017-04-14 16:19 | PD.TTN ---
Present for Treatment Team Treatment Team Staff: Provider (Dr. Saeed), Nurse (Olive), Psych Therapist ( Brianna) Patient Problems 1. Discharge planning 2. Medication compliance 3. Knowledge deficit 4. Lack of coping skills Progress Toward Goals Provider Input: Patient seems to be nearing his baseline and has been compliant with his medications on the unit. The patient is noting side effects, such as hair loss but no behavioral issues. Nurse Input: Patient is compliant with medications and is not having any behavioral issues on the unit. Patient continues to be hyperverbal but has somewhat logical thought process. Psych Therapist Input: Patient continues to be somewhat resistence to taking his medication residential and is easily agitated when mentioning going on disability. Family meeting with patient, along with mother, stepfather and sister noted that patient would return home if he behaves well for the next few days. Family will deepthi patient's behavior to determine whether patient is appropriate to return home. Brianna Tejeda RMI Apr 14, 2017 16:19
[2017-04-14] MEDS: LORazepam 1 MG TAB PO PRN (18:00)
[2017-04-14 19:13] VITALS: BP_SYST 101; BP_SYST 126; BP_DIAS 50; BP_DIAS 67; PULSE 66; PULSE 97; RESP 16; RESP 24; TEMP 98.1; TEMP 98.4; O2SAT 98
[2017-04-14] MEDS: OLANZapine 10 MG TAB PO SCH (20:32)
[2017-04-15 06:05] VITALS: BP 87/48; PULSE 70; RESP 16; TEMP 97.9; O2SAT 100
[2017-04-15] MEDS: LEVOTHYROXINE SODIUM 100 MCG TAB PO SCH (06:21)
[2017-04-15] MEDS: MULTIVITAMIN TAB PO SCH (08:53)
[2017-04-15] MEDS: LITHIUM ORAL SOLUTION 300 MG/5 ML CUP PO SCH ×3 (08:53→21:30)
[2017-04-15 16:30] VITALS: BP 104/55; PULSE 76; RESP 16; TEMP 97.6; O2SAT 99
[2017-04-15] MEDS: LORazepam 1 MG TAB PO PRN (17:36)
[2017-04-15] MEDS: OLANZapine 10 MG TAB PO SCH (21:31)
[2017-04-16 05:38] VITALS: BP 84/50; PULSE 59; RESP 17; TEMP 98.5; O2SAT 99
[2017-04-16] MEDS: LEVOTHYROXINE SODIUM 100 MCG TAB PO SCH (05:54)
[2017-04-16] MEDS: LITHIUM ORAL SOLUTION 300 MG/5 ML CUP PO SCH (08:32)
[2017-04-16] MEDS: MULTIVITAMIN TAB PO SCH (08:32)
[2017-04-16] MEDS ORDERED: LEVO.1 PO (12:06)
[2017-04-16] MEDS ORDERED: LITH300T PO ×2 (12:06)
[2017-04-16] MEDS ORDERED: OLAN10TA PO (12:06)
[2017-04-16] MEDS ORDERED: LITHIUM CARBONATE 300 MG SLOW RELEASE TAB PO SCH ×2 (18:00→21:00)
--- NOTE | 2017-04-19 13:34 | MD ---
cc: DIXIE ROBERTSON M.D. ADMISSION DATE: 03/27/2017 DISCHARGE DATE: 04/16/2017 04/16/2017 ADMISSION DIAGNOSIS [place] I: Bipolar affective disorder, hypomanic phase. [place] II: Asperger syndrome [place] III: Hypothyroidism [place] IV: Severity of psychosocial stressors moderate i.e. chronic psychiatric illness, limited financial resources. [place] V: Current GAF score 40 DISCHARGE DIAGNOSIS Bipolar affective disorder, hypomanic phase. [place] II: Asperger syndrome [place] III: Hypothyroidism [place] IV: Severity of psychosocial stressors moderate i.e. chronic psychiatric illness, limited financial resources. [place] V: Current GAF score 60 HISTORY This 27-year-old white male was brought to the emergency room voluntarily because of increasing agitation, delusions. He carries a diagnosis of bipolar affective disorder and Asperger's disease and has discontinued his medications about three months prior to admission and since then reportedly had been decompensating. While in the emergency room, the Bush ACT was initiated by the emergency room physician. Please refer to my initial evaluation for details. SIGNIFICANT LAB WORK UP CBC with differential repeated on different dates on 04/07, it was unremarkable. CMP was also repeated on different dates and on 04/12 it was unremarkable. T4 is normal. TSH low at 0.168. As such, the dose of Synthroid was reduced from 112 mcg to 100 mcg. Urine drug screen was negative for any illicit substances. Serum lithium level was monitored on different dates and on 04/12 it was 0.8. HOSPITAL COURSE When initially evaluated, Mr. Corrigan was rather hyperverbal displayed circumstantial/tangential thoughts, quite labile and paranoid. Initially, he was also quite agitated requiring use of p.r.n. intramuscular Ativan. He seemed quite ambivalent about his medications especially the lithium which he acknowledged he had taken for many years and had benefited from it. He maintained this ambivalence throughout this hospital stay despite best efforts to educate him. He was offered other alternative medications which he did not wish to try because of one of the other side effects he either had or was going to have. It was only towards the end of this hospital stay when he began to accept the need for him to stay on his current medications and follow up with a psychiatrist if he was to remain out of the hospital. This particular issue I also had discussed with his parents with whom I met and also in the last treatment team meeting two days ago where his parents and his sister also participated. In addition to the role of medication is treatment plan, his placement needs were also discussed. He has continued to have a hostile/depend type of relationship with both parents especially with his mother. He would frequently get angry at them during the visitation. He was reminded of the need to work on this particular issue sincerely if he was to avoid placement in an assisted living facility. He plans to live temporarily with his parents and then find a job and hopefully move on his own. The current combination of medication i.e. lithium, Zyprexa work quite well in the sense that his lability subsided, the paranoia subsided and all his overall attitude and interaction with staff and other patients improved significantly. He did not exhibit any aggressive or self-destructive behavior nor did he verbalize any suicidal or homicidal ideations. As such, it is felt by the treatment team that he has received optimum benefit out of this admission and is ready for discharge. Mr. Corrigan informed me that he had a good visit with his parents yesterday and they feel comfortable about him returning home. The need for outpatient follow up and continuation of psychiatric medications was again emphasized to him and he was quite receptive. His discharge medications are as follows. 1. Synthroid 100 mcg daily 14-day supply. 2. [place] carbonate ER 600 mg q.h.s. 14 days supply, one refill. 3. [place] carbonate ER 300 mg p.o. b.i.d. p.c. 14 days supply, one refill. 4. Zyprexa 15 mg p.o. q.h.s. 14 days supply, one refill. He is to have repeat CBC with differential, CMP, serum lithium level in one week and copies of the results are to be sent to his outpatient psychiatrist at [facility] and his primary care physician. He is also recommended to have individual and family therapy through [facility]. MD RENA Charles/FANY /12:14 PM /1:29 PM
== END 2017-04-16 14:05 | disposition home or self-care (01) | DRG 885 ==
LOC: NEPE 18:30 → NEDA 03-27 05:51 → H270 03-27 06:05 → H260 03-29 14:35
PROVIDERS: ADMIT Psychiatry & Neurology Psychiatry; ATTEND Psychiatry & Neurology Psychiatry
DX: F31.0 Bipolar disorder, current episode hypomanic (principal); Z91.14 Patient's other noncompliance with medication regimen; F84.5 Asperger's syndrome; E03.9 Hypothyroidism, unspecified; Z88.0 Allergy status to penicillin
CPT/HCPCS: 80053; 80061; 80178; 80307; 83036; 84439; 84443; 85025; J2060

== ENCOUNTER 2017-05-26 18:43 | Inpatient (IN) | payer OTHER ==
[~2017-05-26] VITALS: Ht 172.7 cm; Wt 74.7 kg
[~2017-05-26 18:43] MED LIST changes: -ADDE10XR; -CLON.1; +FLUV25TA PO; +LEVO.1 PO; +LITH300T PO; +LITH600C PO; +OLAN10TA PO; -PROZ40CA; -RISP1; +RISP1 PO; +TRIH2 PO
--- NOTE | 2017-05-26 19:05 | PD ---
HPI Chief Complaint: Psychiatric Symptoms Time Seen by Provider: 18:50 Travel History International Travel<30 days: No Contact w/Intl Traveler<30days: No Traveled to known affect area: No History of Present Illness HPI 27-year-old male history of aspergers, bipolar disorder presents under Bush act initiated by the [employer]. According to his paperwork, "while having an episode Kash told his mother that he wanted to kill himself. When I questioned Fortunato about this he did admit to saying it. Evan mother advised he has had this numerous times in the past." History is limited from the patient. He makes bizarre nonsensical statements. It appears that the patient was hospitalized psychiatrically in March 27. It appears that when he was discharged was given prescriptions for Synthroid, lithium, Zyprexa. It is unclear whether or not the patient has been compliant with his medications. 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) Cardiovascular Problems: No Chemotherapy: No Congestive Heart Failure: No COPD: No Cerebrovascular Accident: No Diabetes: No Diminished Hearing: No Endocrine: No GERD: No Genitourinary: No Hiatal Hernia: No Immune Disorder: No Kidney Stones: No Musculoskeletal: No Neurologic: Yes (Asbergers/Bipolar/Swannmatosis) Psychiatric: Yes Reproductive: No Respiratory: No Immunizations Current: No Migraines: No Radiation Therapy: No Renal Failure: No Seizures: No Sickle Cell Disease: No Thyroid Disease: Yes (Hypothroidism) Ulcer: No ?: Not Past Surgical History Abdominal Surgery: No AICD: No Arteriovenous Shunt: No Cardiac Surgery: No Ear Surgery: No Endocrine Surgery: No (has Hypothroidism) Eye Surgery: No Genitourinary Surgery: No Gynecologic Surgery: No Insulin Pump: No Joint Replacement: No Oral Surgery: No Pacemaker: No Thoracic Surgery: No Social History Alcohol Use: No Tobacco Use: No Substance Use: No (PT DENIES) Allergies-Medications (Allergen,Severity, Reaction): Coded Allergies: penicillin G (Unverified Allergy, Severe, RASH, 05/04/17) chicken derived (Unverified Allergy, Mild, 05/04/17) PER MOTHER Reported Meds & Prescriptions Reported Meds & Active Scripts Active Olanzapine 10 Mg Tab 15 Mg PO HS 14 Days [place] Carbonate ER ([place] Carbonate) 300 Mg Tab 300 Mg PO BIDPC 14 Days [place] Carbonate ER ([place] Carbonate) 300 Mg Tab 600 Mg PO HS 14 Days Synthroid (Levothyroxine Sodium) 100 Mcg Tab 100 Mcg PO DAILY@06 14 Days Reported Risperdal (Risperidone) 1 Mg Tab 1 Mg PO DAILY PRN Olanzapine 10 Mg Tab 10 Mg PO HS Trihexyphenidyl (Trihexyphenidyl HCl) 2 Mg Tab 2 Mg PO HS Fluvoxamine (Fluvoxamine Maleate) 25 Mg Tab 25 Mg PO DAILY [place] Carbonate 600 Mg Cap 600 Mg PO HS Review of Systems ROS Limitations: Altered Mental Status Except as stated in HPI: all other systems reviewed are Neg Physical Exam Exam Limitations: Altered Mental Status, Poor Historian Narrative GENERAL: Well-developed well-nourished male in no acute distress. SKIN: Warm and dry. HEAD: Atraumatic. Normocephalic. EYES: Pupils equal and round. No scleral icterus. No injection or drainage. ENT: No nasal bleeding or discharge. Mucous membranes pink and moist. NECK: Trachea midline. No JVD. CARDIOVASCULAR: Regular rate and rhythm. No murmur appreciated. RESPIRATORY: No accessory muscle use. Clear to auscultation. Breath sounds equal bilaterally. GASTROINTESTINAL: Abdomen soft, non-tender, nondistended. Hepatic and splenic margins not palpable. MUSCULOSKELETAL: No obvious deformities. No clubbing. No cyanosis. No edema. NEUROLOGICAL: Awake and alert. No obvious cranial nerve deficits. Motor grossly within normal limits. Normal speech. PSYCHIATRIC: Disorganized, insight and judgment appear limited. Data Data Last Documented VS Vital Signs Date Time Temp Pulse Resp B/P (MAP) Pulse Ox O2 Delivery O2 Flow Rate FiO2 05/26/17 19:07 99.6 77 17 147/90 (109) 97 Orders Orders Complete Blood Count With Diff (05/26/17 18:59) Comprehensive Metabolic Panel (05/26/17 18:59) Psych Screen (05/26/17 18:59) [place] (Li) (05/26/17 18:59) Drug Screen, Random Urine (05/26/17 18:59) Alcohol (Ethanol) (05/26/17 18:59) Olanzapine Inj (Zyprexa Inj) (05/26/17 19:30) ^ Sitter (05/26/17 19:37) Restraints Non-Violent ALFRED.Q3H (05/26/17 20:29) Labs Laboratory Tests Test 05/26/17 19:15 White Blood Count 10.8 TH/MM3 Red Blood Count 6.15 MIL/MM3 Hemoglobin 16.9 GM/DL Hematocrit 50.3 % Mean Corpuscular Volume 81.8 FL Mean Corpuscular Hemoglobin 27.5 PG Mean Corpuscular Hemoglobin Concent 33.6 % Red Cell Distribution Width 13.7 % Platelet Count 281 TH/MM3 Mean Platelet Volume 7.8 FL Neutrophils (%) (Auto) 70.6 % Lymphocytes (%) (Auto) 19.5 % Monocytes (%) (Auto) 8.3 % Eosinophils (%) (Auto) 1.1 % Basophils (%) (Auto) 0.5 % Neutrophils # (Auto) 7.7 TH/MM3 Lymphocytes # (Auto) 2.1 TH/MM3 Monocytes # (Auto) 0.9 TH/MM3 Eosinophils # (Auto) 0.1 TH/MM3 Basophils # (Auto) 0.1 TH/MM3 CBC Comment DIFF FINAL Differential Comment Blood Urea Nitrogen 20 MG/DL Creatinine 1.11 MG/DL Random Glucose 95 MG/DL Total Protein 7.9 GM/DL Albumin 4.4 GM/DL Calcium Level 9.3 MG/DL Alkaline Phosphatase 68 U/L Aspartate Amino Transf (AST/SGOT) 20 U/L Alanine Aminotransferase (ALT/SGPT) 36 U/L Total Bilirubin 0.7 MG/DL Sodium Level 140 MEQ/L Potassium Level 3.5 MEQ/L Chloride Level 106 MEQ/L Carbon Dioxide Level 24.2 MEQ/L Anion Gap 10 MEQ/L Estimat Glomerular Filtration Rate 79 ML/MIN [place] Level LESS THAN 0.1 MEQ/L Ethyl Alcohol Level LESS THAN 3 MG/DL [facility] Medical Decision Making Medical Screen Exam Complete: Yes Emergency Medical Condition: Yes Medical Record Reviewed: Yes Differential Diagnosis Bipolar disorder, medication noncompliance, substance induced mood disorder, acute psychosis Narrative Course 27-year-old male with history of bipolar disorder and aspergers presents under a Bush act for psychiatric evaluation. Plan is for basic lab work. The patient became increasingly agitated and exhibiting bizarre behavior. He required the administration of Zyprexa as well as soft limb restraint. Mental health screening discussed with the patient. Psychiatric screen ordered. The patient's lab work is unremarkable and his lithium level is nonexistent. Is medically clear for psychiatric disposition. Diagnosis Primary Impression: Bipolar affective disorder, manic, mild Albin Sandoval May 26, 2017 19:05
[2017-05-26 19:07] VITALS: BP 147/90; PULSE 77; RESP 17; TEMP 99.6; O2SAT 97
[2017-05-26] MEDS ORDERED: OLANZapine IM 10 MG VIAL IM ONE (19:30)
[2017-05-26 19:33] LABS: AUTOMATED NEUTROPHIL # 7.7 TH/MM3 (1.8-7.7); BASOPHIL # 0.1 TH/MM3 (0-0.2); BASOPHIL % 0.5 % (0.0-2.0); EOSINOPHIL # 0.1 TH/MM3 (0-0.4); EOSINOPHIL % 1.1 % (0.0-4.0); HEMATOCRIT 50.3 % (39.0-51.0); HEMO FLAGS DIFF FINAL; LYMPH % 19.5 % (9.0-44.0); LYMPHOCYTE # 2.1 TH/MM3 (1.0-4.8); MEAN CELL VOLUME 81.8 FL (80.0-100.0); MEAN CORPUSCULAR HEMOGLOBIN 27.5 PG (27.0-34.0); MEAN CORPUSCULAR HGB CONC 33.6 % (32.0-36.0); MONO % 8.3 % (0.0-8.0); NEUT % 70.6 % (16.0-70.0); PLATELET COUNT 281 TH/MM3 (150-450); RED BLOOD COUNT 6.15 MIL/MM3 (4.50-5.90); RED CELL DISTRIBUTION WIDTH 13.7 % (11.6-17.2); WHITE BLOOD COUNT 10.8 TH/MM3 (4.0-11.0)
[2017-05-26 19:54] LABS: ALT (GPT) 36 U/L (12-78); ANION GAP 10 MEQ/L (5-15); AST (GOT) 20 U/L (15-37); BICARBONATE 24.2 MEQ/L (21.0-32.0); BLOOD UREA NITROGEN 20 MG/DL (7-18); CHLORIDE 106 MEQ/L (98-107); GLOMERULAR FILTRATION RATE 79 ML/MIN (>89); POTASSIUM 3.5 MEQ/L (3.5-5.1); SODIUM (NA) 140 MEQ/L (136-145)
[2017-05-26 19:57] LABS: ALCOHOL LESS THAN 3 MG/DL (0-5); ALKALINE PHOSPHATASE 68 U/L (45-117); TOTAL BILIRUBIN ADULT 0.7 MG/DL (0.2-1.0)
[2017-05-26 23:27] VITALS: BP 131/61; PULSE 80; RESP 18; TEMP 97.6; O2SAT 97
[2017-05-27 02:16] VITALS: BP 102/58; PULSE 57; RESP 16; TEMP 97.9; O2SAT 100
[2017-05-27 05:49] VITALS: BP 136/96; PULSE 88; RESP 18; TEMP 97.9; O2SAT 100
[2017-05-27] MEDS ORDERED: LEVO-168 PO (11:06)
[2017-05-27] MEDS ORDERED: RISP0.5T28 SL (11:08)
[2017-05-27 12:35] VITALS: BP 136/96; TEMP 97.9
[2017-05-27 13:10] VITALS: BP 128/79; PULSE 92; RESP 18; TEMP 98.4; O2SAT 99
[2017-05-27] MEDS ORDERED: LORazepam 2 MG/ML VIAL IM PRN (14:00)
--- NOTE | 2017-05-27 15:21 | MH ---
cc: DIXIE ROBERTSON M.D. DATE OF ADMISSION: 05/27/2017 PRESENTING CHIEF COMPLAINTS AND HISTORY OF PRESENT ILLNESS This 27-year-old white male was brought to the emergency room of this hospital under the Bush Act initiated by the police because of suicidal statements. In the emergency room he was evaluated by psychiatric screener and was initially found to be agitated requiring use of intramuscular injection of Zyprexa. He later on settled down. It was reported that he was making "bizarre nonsensical statements". During this evaluation, however, he denied any suicidal or homicidal ideations or intent. He acknowledged that he has been noncompliant with his medications and his serum lithium level was less than 3. The case was discussed with me and it was felt he needed to be hospitalized for further assessment and treatment. Mr. Corrigan is well-known to me from his previous admission to this unit from 03/27/2017 to 04/16/2017. At that time he had presented with hypomanic picture. He is a rather difficult patient in the sense that he is noncompliant and has difficulty accepting the role of medications in maintaining stability. During that hospital stay he displayed passive aggressive behavior, at times paranoia. He has hostile dependant relationship with his mother. The parents were invited to the treatment team meeting and the hostility was quite noticeable. At the same time he is quite dependent on them in regards to his placement needs. He did not wish to consider assisted-living facility. The parents were not too keen to have him return home either but he assured them of compliance with medications and to follow rules. His detention goal was to return to college, get a job and find his own placement. Neither of these seemed to have happened as evidenced by readmission within 6 weeks. Please refer to my previous evaluation for details. Prior to evaluation the case was discussed with the nursing staff on the unit who indicated since admission he has been quite negative but has not exhibited any aggressive or self-destructive behavior. Mr. Corrigan refused to come into the room for the interview. I had attempted to talk to him in the day room but he was not cooperative either. Despite best efforts by myself and the nursing staff, he did not wish to participate in this evaluation. He continued to state that he was not going to take medications and that he was Bush Acted for "no reason". PAST PSYCHIATRIC HISTORY/PAST MEDICAL HISTORY/FAMILY HISTORY/PERSONAL HISTORY Please refer to my previous evaluation. Suffice to say that his psychiatric history dates back to when he was [id number]. At one-point he was also followed by me as an outpatient. He previously has been on lithium, Zyprexa, Risperdal, Luvox and Artane and reportedly these medications have been managed by his primary care physician up until his last admission in March of this year. He was discharged on lithium, Zyprexa and Synthroid. He has history of hypothyroidism for which he was on Synthroid 100 mcg daily during his last admission. His family history is significant in the sense that his father suffers from bipolar and his mother suffers from "depression". CLINICAL OBSERVATION AND MENTAL STATUS EXAMINATION At the time of this evaluation Mr. Corrigan presented as a poorly groomed bearded white male who looked his stated age. He displayed poor eye contact and talked in soft monotonous voice. Underlying anger was noticeable. As mentioned he was uncooperative and did not wish to participate in this evaluation and refused to volunteer any information despite best efforts on this interviewers part. His affect was blunted, appropriate. He refused to answer any questions in regards to his "mood". From the limited sample of speech his thought processes revealed circumstantiality and tangentiality. He seemed quite guarded and apprehensive indicative of underlying paranoia. Presence of auditory or visual hallucinations could not be determined with certainty in view of lack of cooperation on his part. Also presence of suicidal or homicidal ideations or intent could not be determined at this time due to lack of cooperation on his part. However, as mentioned during his evaluation in the emergency room he denied entertaining suicidal or homicidal ideations. He had denied any previous suicide attempts. Cognitively, he seemed alert, oriented to place, person and situation. His memory could not be tested formally due to lack of cooperation on his part. REVIEW OF SYSTEMS AND PHYSICAL EXAMINATION Could not be performed because of lack of cooperation on his part. However, during his evaluation in the emergency room by the emergency room physician no acute medical issues were identified. No gross neurological deficits noticed at this time. DIAGNOSTIC IMPRESSION [place] I: Bipolar affective disorder, probably hypomanic phase. [place] II: Asperger syndrome. [place] III: Hypothyroidism. [place] IV: Severity of psychosocial stressors, moderate, i.e. chronic psychiatric illness, limited financial resources, conflictual relationship with parents. [place] V: Current GAF score 40. FORMULATION AND TREATMENT PLAN Based on this evaluation and the knowledge of his case, it appears Mr. Corrigan is experiencing hypomanic episode primarily due to noncompliance with medications/outpatient treatment. According to information provided by his mother over the past few weeks he has been agitated, not able to sleep and walking in the middle of night, etc. At this time he appears to be quite guarded and somewhat "paranoid" as evidenced by his refusal to be interviewed. He had indicated to the staff that he prefers Risperdal and as such will be continued on it. Also lithium will be restarted. It is doubtful he will comply with his treatment plan. As such involuntary admission will be initiated and guardian advocate will be requested. I have discussed the discharge plan/placement needs with his therapist Brianna, who was involved in his care during last admission as well. It is doubtful the parents will take him back and as such placement will be a problem. His drug regimen will be modified as warranted. Simultaneously he will be involved in individual psychotherapy primarily focusing on the identified issues. He will participate in various other unit activities, i.e., occupational therapy, recreational therapy, group therapy. IDENTIFIED PROBLEMS 1. Psychosis/mood swings. 2. Noncompliance. 3. Current psychosocial stressors. ASSETS 1. He is verbal. 2. Reasonably good physical health. ESTIMATED LENGTH OF STAY 7 days. MD RENA Charles/ROSALINA /2:21 PM /2:42 PM
[2017-05-27 18:16] VITALS: BP 145/63; PULSE 102; RESP 17; TEMP 96.6; O2SAT 99
[2017-05-27] MEDS: risperiDONE 1 MG TAB PO SCH (21:24)
[2017-05-27] MEDS: LITHIUM ORAL SOLUTION 300 MG/5 ML CUP PO SCH (21:24)
[2017-05-27] MEDS: TEMAZEPAM 15 MG CAP PO PRN (21:24)
[2017-05-28 05:18] VITALS: BP 118/58; PULSE 62; RESP 16; TEMP 98; O2SAT 98
[2017-05-28] MEDS: LITHIUM ORAL SOLUTION 300 MG/5 ML CUP PO SCH ×3 (05:51→22:00)
[2017-05-28] MEDS: LEVOTHYROXINE SODIUM 100 MCG TAB PO SCH (05:51)
[2017-05-28] MEDS ORDERED: LEVOTHYROXINE SODIUM 112 MCG TAB PO SCH (06:00)
[2017-05-28] MEDS: risperiDONE 1 MG TAB PO SCH ×2 (09:23→21:59)
--- NOTE | 2017-05-28 11:19 | PD.PSY.CON ---
Provisional Diagnosis Admission Date May 27, 2017 at 12:46 History of Present Illness Service Psychiatry Consult Requested By Dr. saeed Reason for Consult Second opinion petition supporting [facility] Primary Care Physician Madan Walters, DO HPI Patient is a 27-year-old white male diminished Dr. saeed's service under the [facility]. Dr. saeed's psychiatric evaluation reviewed and agreed with Patient seen by me with nurse Maria Elena, patient markedly confused disoriented appears to be responding to internal stimuli. Has no insight into his behaviors, noncompliance medication, and suicidal ideation. Dr. saeed PSA first opinion petition supporting [facility]. I agree. Patient meets criteria for involuntary psychiatric hospitalization under the [facility]. Thus I will cosign second opinion petition supporting [facility] Past Family Social History Coded Allergies: penicillin G (Unverified Allergy, Severe, RASH, 05/04/17) chicken derived (Unverified Allergy, Mild, 05/04/17) PER MOTHER Active Scripts Olanzapine (Olanzapine) 10 Mg Tab, 15 MG PO HS for Psychosis for 14 Days, TAB 1 Refill Prov:Blake Saeed MD 04/16/17 [place] Carbonate ER ([place] Carbonate ER) 300 Mg Tab, 300 MG PO BIDPC for Control Mood Swing for 14 Days, TAB 1 Refill Prov:Blake Saeed MD 04/16/17 [place] Carbonate ER ([place] Carbonate ER) 300 Mg Tab, 600 MG PO HS for Control Mood Swing for 14 Days, TAB 1 Refill Prov:Blake Saeed MD 04/16/17 Reported Medications Risperidone Odt (Risperdal M-Tab) 0.5 Mg Tab, 0.25 MG SL DAILY, #30 TAB 0 Refills 05/27/17 Levothyroxine (Levothyroxine) 112 Mcg Tab, 112 MCG PO DAILY, #30 TAB 0 Refills 05/27/17 Risperidone (Risperdal) 1 Mg Tab, 1 MG PO DAILY Y for PRN, #30 TAB 0 Refills 03/27/17 Olanzapine (Olanzapine) 10 Mg Tab, 10 MG PO HS, #60 TAB 0 Refills 03/27/17 Trihexyphenidyl (Trihexyphenidyl) 2 Mg Tab, 2 MG PO HS for Parkinson Disease Mgmt, #60 TAB 0 Refills 03/27/17 Fluvoxamine (Fluvoxamine) 25 Mg Tab, 25 MG PO DAILY, #30 TAB 0 Refills 03/27/17 [place] Carbonate ([place] Carbonate) 600 Mg Cap, 600 MG PO HS, CAP 0 Refills 03/27/17 Discontinued Scripts Levothyroxine (Synthroid) 100 Mcg Tab, 100 MCG PO DAILY@06 for Thyroid for 14 Days, TAB Prov:Blake Saeed MD 04/16/17 Current Medications Medications (Trade) Dose Ordered Sig/Berta Route Start Time Stop Time Status Last Admin (risperDAL) 1 mg BID PO 05/27/17 21:00 05/28/17 09:23 (Ativan) 1 mg Q4H PRN PO 05/27/17 14:00 (Ativan Inj) 1 mg Q4H PRN IM 05/27/17 14:00 05/27/17 22:09 (Synthroid) 100 mcg DAILY@0600 PO 05/28/17 06:00 05/28/17 05:51 (Cibalith-S Liq) 300 mg Q8HR PO 05/27/17 22:00 05/28/17 05:51 (Restoril) 30 mg HS PRN PO 05/27/17 21:00 Physical Exam Vital Signs Vital Signs Date Time Temp Pulse Resp B/P (MAP) Pulse Ox O2 Delivery O2 Flow Rate FiO2 05/28/17 05:18 98.0 62 16 118/58 (78) 98 Mental Status Examination Alert diffusely confused disorganized disheveled white male Appearance Disheveled Speech: Hesitant, Other (markedly disorganized) Orientation: Person Memory: Impaired (describe) Thought Process: Loose Association Thought Content: Other (markedly disorganized) Language Poor Fund of Knowledge Poor Hallucination Type: None (denies that appears to be responding to internal stimuli) Attention and Concentration: Other (poor) Suicidal Ideation: Yes (patient vague and ambiguous did not give consistent answers) Previous Suicide Attempts: No (unknown at this time) Homicidal Ideation: No (denies) Previous Homicide Attempts: No (denies) Insight: Poor Judgment: Poor Affect: Other (slight increase range and intensity) Mood: Anxious, Irritable (mildly) Motor Activity: Normal gait Assessment & Plan Problem List: (1) Bipolar affective disorder, manic, mild ICD Codes: F31.11 - Bipolar disorder, current episode manic without psychotic features, mild Status: Acute Assessment & Plan Estimated LOS: Alvaro Cabrera MD May 28, 2017 11:19
[2017-05-28 21:32] VITALS: BP 128/74; PULSE 104; RESP 18; TEMP 97.9; O2SAT 98
[2017-05-28] MEDS: TEMAZEPAM 15 MG CAP PO PRN (21:59)
[2017-05-28] MEDS: LORazepam 1 MG TAB PO PRN (22:00)
[2017-05-29] MEDS: LITHIUM ORAL SOLUTION 300 MG/5 ML CUP PO SCH ×3 (06:00→23:00)
[2017-05-29 06:30] VITALS: BP 132/67; PULSE 93; RESP 17; TEMP 98.4; O2SAT 95
[2017-05-29] MEDS: risperiDONE 1 MG TAB PO SCH ×2 (08:28→23:00)
[2017-05-29] MEDS: LEVOTHYROXINE SODIUM 100 MCG TAB PO SCH (11:53)
[2017-05-29 17:54] VITALS: BP 131/76; PULSE 101; RESP 16; TEMP 98.6; O2SAT 98
[2017-05-30] MEDS: LEVOTHYROXINE SODIUM 100 MCG TAB PO SCH (06:16)
[2017-05-30] MEDS: LITHIUM ORAL SOLUTION 300 MG/5 ML CUP PO SCH ×3 (06:16→22:33)
[2017-05-30 06:57] VITALS: BP 94/53; PULSE 55; RESP 16; TEMP 97.7; O2SAT 100
--- NOTE | 2017-05-30 08:10 | HHI.PYPN ---
Subjective Remarks This is a late dictation progress note patient seen on 05/29/17. At that time patient continues somewhat intrusive markedly disorganized with me. Denying mental illness focusing on spiritual type rationalizations for his behaviors. Showing no insight into his issues. Though he is been no behavioral problems, and is compliant with his medication Review of Systems Except as stated in HPI: all other systems reviewed are Neg Objective Alert: Yes [place]: Person, Place, Date Mood: Anxious, Calm Affect: Other (slight increase range and intensity) Memory Intact: Comment (poor) Hallucinations: Other (denies) Delusions: Yes Delusion Type: Grandiose (somewhat) Suicidal: Ideation Homicidal: Ideation (denies) Insight/Judgment Poor Vitals/IOs Vital Signs Date Time Temp Pulse Resp B/P (MAP) Pulse Ox O2 Delivery O2 Flow Rate FiO2 05/30/17 06:57 97.7 55 16 94/53 (67) 100 Intake and Output 05/30/17 05/30/17 05/30/17 07:59 15:59 23:59 Intake Total 480 ml Balance 480 ml Assessment & Plan Problem List: (1) Bipolar affective disorder, manic, mild ICD Codes: F31.11 - Bipolar disorder, current episode manic without psychotic features, mild Status: Acute Assessment & Plan Estimated LOS: days patient continue psychotic grandiose delusional. Compliant medications. With no significant behavioral problems at this time Justification for Cont. Inpt. Patient will decompensate the placed a lower level of care Alvaro Cabrera MD May 30, 2017 08:09
--- NOTE | 2017-05-30 08:11 | HHI.PYPN ---
Subjective Remarks Patient seen by me today in [facility] with floor staff, chart review, patient compliant medications. Patient continues intense intrusive somewhat grandiose of the "holistic" spiritual type of manner. Continues to deny that he has mental illness. Though his compliant with medications and no significant behavioral problems. For now continue treatment Review of Systems Except as stated in HPI: all other systems reviewed are Neg Objective Alert: Yes [place]: Person, Place, Date Mood: Anxious, Calm Affect: Other (slight increase range and intensity) Memory Intact: Comment (poor) Hallucinations: Other (denies) Delusions: Yes Delusion Type: Grandiose (somewhat) Suicidal: Ideation Homicidal: Ideation (denies) Insight/Judgment Poor Vitals/IOs Vital Signs Date Time Temp Pulse Resp B/P (MAP) Pulse Ox O2 Delivery O2 Flow Rate FiO2 05/30/17 06:57 97.7 55 16 94/53 (67) 100 Intake and Output 05/30/17 05/30/17 05/30/17 07:59 15:59 23:59 Intake Total 480 ml Balance 480 ml Assessment & Plan Problem List: (1) Bipolar affective disorder, manic, mild ICD Codes: F31.11 - Bipolar disorder, current episode manic without psychotic features, mild Status: Acute Assessment & Plan Estimated LOS: days patient continues delusional intense also somewhat isolative, compliant medications Justification for Cont. Inpt. At this time patient will decompensate with placed in a lower level of care Discharge Planning To be determined Alvaro Cabrera MD May 30, 2017 08:11
[2017-05-30] MEDS: risperiDONE 1 MG TAB PO SCH ×2 (08:17→22:33)
[2017-05-30 11:19] LABS: ANION GAP 6 MEQ/L (5-15); BICARBONATE 28.2 MEQ/L (21.0-32.0); BLOOD UREA NITROGEN 10 MG/DL (7-18); CHLORIDE 105 MEQ/L (98-107); GLOMERULAR FILTRATION RATE 98 ML/MIN (>89); POTASSIUM 4.1 MEQ/L (3.5-5.1); SODIUM (NA) 139 MEQ/L (136-145)
[2017-05-30 11:23] LABS: HDL CHOLESTEROL 51.9 MG/DL (40.0-60.0); LDL CHOLESTEROL 70 MG/DL (0-99)
[2017-05-30 12:59] LABS: HEMOGLOBIN A1a 0.8 %; HEMOGLOBIN A1b 1.5 %; HEMOGLOBIN Ao 87.1 %; HEMOGLOBIN LA1C 1.7 %; HEMOGLOBIN P3 3.3 %
[2017-05-30 17:27] VITALS: BP 157/90; PULSE 118; RESP 19; TEMP 98.1
[2017-05-31 06:21] VITALS: BP 121/59; PULSE 62; RESP 17; TEMP 97.9; O2SAT 100
[2017-05-31] MEDS: LEVOTHYROXINE SODIUM 100 MCG TAB PO SCH (06:38)
[2017-05-31] MEDS: LITHIUM ORAL SOLUTION 300 MG/5 ML CUP PO SCH ×3 (06:39→21:13)
[2017-05-31] MEDS: risperiDONE 1 MG TAB PO SCH ×2 (08:12→20:07)
--- NOTE | 2017-05-31 09:54 | HHI.PYPN ---
Subjective Remarks Patient seen and examined with nurse in coverage for Dr. Saeed. Chart reviewed. Case discussed with nursing staff. On my examination today, patient denies SI. Denies AVH but says that he is sensitive to sensory input. Has some preoccupations, such as shipping packages. No side effects from medications but doesn't like the lithium. No physical complaints. Review of Systems ROS Limitations: Poor Historian Except as stated in HPI: all other systems reviewed are Neg Objective Alert: Yes [place]: Person, Place, Date Mood: Calm Affect: Blunted Memory Intact: Comment (not formally assessed) Hallucinations: Other (no AVH) Delusions: No Delusion Type: Other (none elicited) Suicidal: Ideation (denies SI) Homicidal: Ideation (no HI) Insight/Judgment Poor Remarks No motor abnormalities noted Labs Labs reviewed. I note most recent lithium level was undetectable. No recent check of TSH. Vitals/IOs Vital Signs Date Time Temp Pulse Resp B/P (MAP) Pulse Ox O2 Delivery O2 Flow Rate FiO2 05/31/17 06:21 97.9 62 17 121/59 (79) 100 Intake and Output 05/31/17 05/31/17 06/01/17 08:00 16:00 00:00 Intake Total 240 ml Balance 240 ml Assessment & Plan Problem List: (1) Bipolar affective disorder, manic, mild ICD Codes: F31.11 - Bipolar disorder, current episode manic without psychotic features, mild Status: Acute Assessment & Plan Continue current psychotropics as ordered. Check a lithium level and TSH in the morning. Continue other medications and care as ordered. Justification for Cont. Inpt. Risk for decompensation in less restrictive environment. Discharge Planning Per Dr. Saeed. Usama Noguera MD May 31, 2017 09:54
[2017-05-31] MEDS: LORazepam 1 MG TAB PO PRN ×2 (11:24→20:08)
[2017-05-31 18:14] VITALS: BP 128/73; PULSE 99; RESP 18; TEMP 98.1; O2SAT 94
[2017-06-01] MEDS: LITHIUM ORAL SOLUTION 300 MG/5 ML CUP PO SCH ×3 (05:43→21:26)
[2017-06-01] MEDS: LEVOTHYROXINE SODIUM 100 MCG TAB PO SCH (05:43)
[2017-06-01 05:55] VITALS: BP 101/58; PULSE 56; RESP 16; TEMP 97.7; O2SAT 98
[2017-06-01] MEDS: risperiDONE 1 MG TAB PO SCH (10:29)
[2017-06-01] MEDS: risperiDONE ODT 1 MG TAB PO SCH (17:12)
[2017-06-01 18:00] VITALS: BP 120/71; PULSE 99; RESP 16; TEMP 98.2; O2SAT 97
[2017-06-01] MEDS: TEMAZEPAM 15 MG CAP PO PRN (21:26)
[2017-06-02 05:05] VITALS: BP 110/51; PULSE 85; RESP 16; TEMP 98.7; O2SAT 100
[2017-06-02] MEDS: LEVOTHYROXINE SODIUM 100 MCG TAB PO SCH (06:20)
[2017-06-02] MEDS: LITHIUM ORAL SOLUTION 300 MG/5 ML CUP PO SCH ×3 (06:20→22:00)
[2017-06-02] MEDS: risperiDONE ODT 1 MG TAB PO SCH ×3 (09:00→17:31)
[2017-06-02 11:43] LABS: AUTOMATED NEUTROPHIL # 6.2 TH/MM3 (1.8-7.7); BASOPHIL % 0.5 % (0.0-2.0); EOSINOPHIL # 0.2 TH/MM3 (0-0.4); EOSINOPHIL % 2.6 % (0.0-4.0); HEMATOCRIT 47.6 % (39.0-51.0); HEMO FLAGS DIFF FINAL; LYMPH % 17.4 % (9.0-44.0); LYMPHOCYTE # 1.5 TH/MM3 (1.0-4.8); MEAN CELL VOLUME 82.5 FL (80.0-100.0); MEAN CORPUSCULAR HEMOGLOBIN 28.1 PG (27.0-34.0); MONO % 6.5 % (0.0-8.0); PLATELET COUNT 224 TH/MM3 (150-450); RED BLOOD COUNT 5.77 MIL/MM3 (4.50-5.90); RED CELL DISTRIBUTION WIDTH 13.5 % (11.6-17.2); WHITE BLOOD COUNT 8.5 TH/MM3 (4.0-11.0)
[2017-06-02 12:12] LABS: ANION GAP 5 MEQ/L (5-15); AST (GOT) 13 U/L (15-37); BLOOD UREA NITROGEN 12 MG/DL (7-18); CHLORIDE 106 MEQ/L (98-107); GLOMERULAR FILTRATION RATE 93 ML/MIN (>89); POTASSIUM 4.1 MEQ/L (3.5-5.1); SODIUM (NA) 140 MEQ/L (136-145)
[2017-06-02 12:13] LABS: ALT (GPT) 28 U/L (12-78)
[2017-06-02 12:23] LABS: ALKALINE PHOSPHATASE 58 U/L (45-117); TOTAL BILIRUBIN ADULT 0.3 MG/DL (0.2-1.0)
[2017-06-02] MEDS: LORazepam 1 MG TAB PO PRN (17:31)
[2017-06-03 05:30] VITALS: BP 96/51; PULSE 79; RESP 17; TEMP 98.6; O2SAT 100
[2017-06-03] MEDS: LEVOTHYROXINE SODIUM 100 MCG TAB PO SCH (05:58)
[2017-06-03] MEDS: LITHIUM ORAL SOLUTION 300 MG/5 ML CUP PO SCH ×2 (05:58→17:55)
[2017-06-03] MEDS: risperiDONE ODT 1 MG TAB PO SCH ×3 (08:55→17:55)
[2017-06-03 16:44] VITALS: BP 125/69; PULSE 75; RESP 18; TEMP 98.4; O2SAT 99
[2017-06-03] MEDS: diphenhydrAMINE HCL 50 MG CAP PO SCH (21:22)
[2017-06-04 05:58] VITALS: BP 106/58; PULSE 69; RESP 16; TEMP 98; O2SAT 100
[2017-06-04] MEDS: LITHIUM ORAL SOLUTION 300 MG/5 ML CUP PO SCH ×5 (05:58→21:20)
[2017-06-04] MEDS: LEVOTHYROXINE SODIUM 100 MCG TAB PO SCH (05:58)
[2017-06-04] MEDS: risperiDONE ODT 1 MG TAB PO SCH ×3 (08:13→17:34)
[2017-06-04 18:11] VITALS: BP 118/48; PULSE 112; RESP 16; TEMP 97.9; O2SAT 99
[2017-06-04] MEDS: diphenhydrAMINE HCL 50 MG CAP PO SCH (21:20)
[2017-06-05] MEDS: LEVOTHYROXINE SODIUM 100 MCG TAB PO SCH (06:10)
[2017-06-05] MEDS: LITHIUM ORAL SOLUTION 300 MG/5 ML CUP PO SCH ×4 (06:11→21:32)
[2017-06-05 06:29] VITALS: BP 124/59; PULSE 91; RESP 17; TEMP 97.6; O2SAT 98
[2017-06-05 06:31] VITALS: BP 105/56; PULSE 61; RESP 16; TEMP 98.9; O2SAT 100
[2017-06-05] MEDS: risperiDONE ODT 1 MG TAB PO SCH ×3 (08:44→18:24)
[2017-06-05 18:00] VITALS: BP 144/62; PULSE 69; RESP 17; TEMP 98; O2SAT 100
[2017-06-05] MEDS: diphenhydrAMINE HCL 50 MG CAP PO SCH (21:32)
[2017-06-06 02:07] VITALS: BP 144/62; PULSE 69; RESP 17; TEMP 98; O2SAT 100
[2017-06-06 06:05] VITALS: BP 100/60; PULSE 57; RESP 18; TEMP 97.6; O2SAT 97
[2017-06-06] MEDS: LEVOTHYROXINE SODIUM 100 MCG TAB PO SCH (06:52)
[2017-06-06] MEDS: LITHIUM ORAL SOLUTION 300 MG/5 ML CUP PO SCH ×3 (06:52→17:08)
[2017-06-06] MEDS: risperiDONE ODT 1 MG TAB PO SCH ×3 (08:22→17:07)
[2017-06-06] MEDS: diphenhydrAMINE HCL 50 MG CAP PO SCH (20:13)
[2017-06-07] MEDS: LITHIUM ORAL SOLUTION 300 MG/5 ML CUP PO SCH ×3 (00:23→12:00)
[2017-06-07] MEDS: LEVOTHYROXINE SODIUM 100 MCG TAB PO SCH (06:15)
[2017-06-07 06:23] VITALS: BP 100/58; PULSE 63; RESP 16; TEMP 97.9; O2SAT 98
[2017-06-07] MEDS: risperiDONE ODT 1 MG TAB PO SCH ×2 (08:51→12:27)
[2017-06-07] MEDS ORDERED: REST15CA PO (14:32)
[2017-06-07] MEDS ORDERED: RISP1TAB54 PO (14:32)
[2017-06-07] MEDS ORDERED: LEVO.1 PO (14:32)
[2017-06-07] MEDS ORDERED: LITH8SOL2 PO (14:32)
--- NOTE | 2017-06-07 15:12 | MD ---
cc: DIXIE ROBERTSON M.D. ADMISSION DATE: 05/27/2017 DISCHARGE DATE: 06/07/2017 [facility] Visit Search.Discharge Date ADMISSION DIAGNOSIS [place] I: Bipolar affective disorder, probably hypomanic phase. [place] II: Asperger's syndrome. [place] III: Hypothyroidism. [place] IV: Severity of psychosocial stressors moderate, i.e., chronic psychiatric illness, limited financial resources, conflictual relationship with parents. [place] V: Current GAF score 40. DISCHARGE DIAGNOSES [place] I: Bipolar affective disorder, manic phase with psychotic features. [place] II: Asperger's syndrome. [place] III: Hypothyroidism. [place] IV: Severity of psychosocial stressors moderate, i.e., chronic psychiatric illness, limited financial resources, conflictual relationship with parents. [place] V: Current GAF score 60-65. BRIEF HISTORY This 27-year-old white male was brought to the emergency room of this hospital under the Bush Act initiated by the police because of suicidal statements. In the emergency room he was evaluated by the psychiatric screener and was initially found to be quite agitated requiring the use of intramuscular injection of Zyprexa. During this evaluation he reportedly made "bizarre and nonsensical statements." When initially evaluated by me he was very uncooperative, very guarded/paranoid, seemed to be responding to internal stimuli. Please refer to my current and previous evaluation for details. LABORATORY WORK-UP Urine drug screen negative. Blood alcohol level less than 3. Serum lithium level on admission less than 0.1, and repeated on 06/02/2017 0.5. CMP was repeated on different dates and on 06/02/2017 his renal function and liver enzymes were normal. TSH was 0.489. HOSPITAL COURSE When initially evaluated he appeared unkempt, somewhat preoccupied, very guarded/paranoid and displayed disorganized thinking. He was very uncooperative and would not participate in the evaluation. He maintained this behavior for the next two or three days. To control his psychotic symptoms he was started on Risperdal and to stabilize his mood he was started on lithium. Despite his reluctance to take any medications, especially lithium, he continued to comply with the medication regimen and as such began to stabilize rather fast to my surprise and the surprise of his parents. His thoughts were very disorganized upon admission and began to organize towards the end and became reality oriented. The auditory hallucinations also subsided. It should be noted that initially he denied it but towards the end he acknowledged the presence of these but would not disclose the content. There was significant improvement in his overall behavior towards staff, myself and his peers. He became to interact more. Towards the end he even apologized for his behavior towards this physician. It should be mentioned that considering the psychotic state he was in, involuntary admission was initiated. His parents attended the treatment team meeting and we reviewed at length the treatment approach and discharge plans. Placement in [facility] was explored but he was not accepted there. I reviewed his condition and discharge plans again with the mother today. She seemed very pleased with the progress he had made and verbalized appreciation for the services provided to him. She also felt he was ready for discharge and requested discharge for today. She seemed comfortable about having him return home. It should be mentioned that throughout this hospital stay he did not exhibit any aggressive or self-destructive behavior nor did he make any threats of harm to self or others. So at this time he is felt to have received optimum benefit out of this admission and is felt no longer to meet the Bush Act criteria. Specifically, he is denying any suicidal or homicidal ideations. He is not exhibiting any acute psychotic symptoms. He even seemed to have gained some insight into the role of medications in his overall treatment approach. He is being discharged with the following recommendations: 1. Synthroid 100 mcg p.o. daily, 10- day supply with one refill. 2. [place] citrate 200 mg p.o. q.6h., 10-day supply with one refill. 3. Risperdal-M 1 mg p.o. t.i.d., 10-day supply with one refill. 4. Restoril 30 mg p.o. q.h.s. p.r.n. for insomnia, 10-day supply with one refill. 5. He is recommended to have repeat serum lithium level, CMP, CBC with differential in 2-3 days and the results of these are to be sent to Dr. Terrell, his outpatient psychiatrist, and his primary care physician. In addition, he is recommended to have individual and family therapy through [facility]. He is recommended to continue outpatient medical follow-up with his primary care physician. MD RENA Charles/MARK /2:41 PM /2:55 PM
== END 2017-06-07 16:30 | disposition home or self-care (01) | DRG 885 ==
LOC: NEPD 18:43 → NEDA 05-27 12:46 → H260 05-27 13:14
PROVIDERS: ADMIT Psychiatry & Neurology Psychiatry; ATTEND Psychiatry & Neurology Psychiatry
DX: F31.10 Bipolar disorder, current episode manic without psychotic features, unspecified (principal); F22 Delusional disorders; F84.5 Asperger's syndrome; E03.9 Hypothyroidism, unspecified; G47.00 Insomnia, unspecified; Z79.899 Other long term (current) drug therapy; Z81.8 Family history of other mental and behavioral disorders; Z91.14 Patient's other noncompliance with medication regimen; F41.8 Other specified anxiety disorders
CPT/HCPCS: 80048; 80053; 80061; 80178; 80307; 83036; 84443; 85025; 96372; J2060; Q0163

== ENCOUNTER 2017-06-20 08:23 | Inpatient (IN) | payer OTHER ==
[~2017-06-20] VITALS: Ht 175.3 cm; Wt 76.2 kg
[~2017-06-20 08:23] MED LIST changes: -FLUV25TA PO; -LITH300T PO; -LITH600C PO; +LITH8SOL2 PO; -OLAN10TA PO; +REST15CA PO; -RISP1 PO; +RISP1TAB54 PO; -SYNT112T; -TRIH2 PO
[2017-06-20 08:39] VITALS: BP 138/81; PULSE 82; RESP 16; TEMP 98.5; O2SAT 99
[2017-06-20 09:19] LABS: AUTOMATED NEUTROPHIL # 10.4 TH/MM3 (1.8-7.7); BASOPHIL # 0.3 TH/MM3 (0-0.2); BASOPHIL % 2.2 % (0.0-2.0); EOSINOPHIL # 0.1 TH/MM3 (0-0.4); EOSINOPHIL % 0.6 % (0.0-4.0); HEMATOCRIT 51.5 % (39.0-51.0); LYMPH % 13.1 % (9.0-44.0); LYMPHOCYTE # 1.7 TH/MM3 (1.0-4.8); MEAN CELL VOLUME 81.8 FL (80.0-100.0); MEAN CORPUSCULAR HEMOGLOBIN 27.4 PG (27.0-34.0); MEAN CORPUSCULAR HGB CONC 33.5 % (32.0-36.0); NEUT % 78.1 % (16.0-70.0); PLATELET COUNT 364 TH/MM3 (150-450); RED BLOOD COUNT 6.29 MIL/MM3 (4.50-5.90); RED CELL DISTRIBUTION WIDTH 13.1 % (11.6-17.2); WHITE BLOOD COUNT 13.3 TH/MM3 (4.0-11.0)
--- NOTE | 2017-06-20 09:23 | PD ---
HPI Chief Complaint: Psychiatric Symptoms Time Seen by Provider: 08:50 Travel History International Travel<30 days: No Contact w/Intl Traveler<30days: No Traveled to known affect area: No History of Present Illness HPI This 27-year-old male is brought by his mother. He has a history of psychiatric illness. His mother says that Dr. morales has been diagnosed with bipolar disorder with psychotic features is outpatient psychiatrist Dr. Patel has a schizoaffective. He was recently discharged from the hospital on June 07 afternoon admission for Bush act. His mother says that he has not been sleeping. He has been extremely agitated and has been angry at home. She has been afraid of him and his been locking doors. He apparently told her this morning that he was thinking of hurting himself. He has had some suicidal attempts in the past. The patient himself denies that he is suicidal at this point. He does have a history of hypothyroidism and according to his mother is pretty good about taking that medication. He was discharged from the hospital on Risperdal and lithium. He apparently has not been taking his lithium. 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) Cardiovascular Problems: No Chemotherapy: No Congestive Heart Failure: No COPD: No Cerebrovascular Accident: No Diabetes: No Diminished Hearing: No Endocrine: No Gastrointestinal Disorders: No GERD: No Genitourinary: No Headaches: No Hiatal Hernia: No Heparin Induced Thrombocytopen: No Hypertension: No Immune Disorder: No Implanted Vascular Access Dvce: No Kidney Stones: No Musculoskeletal: No Neurologic: Yes (Asbergers/Bipolar/Swannomatosis) Psychiatric: Yes (Chicken derived, penicillin G) Reproductive: No Respiratory: No Immunizations Current: No Migraines: No Radiation Therapy: No Renal Failure: No Seizures: No Sickle Cell Disease: No Thyroid Disease: Yes (Hypothroidism) Ulcer: No Past Surgical History Surgical History: No Previous Surgery Abdominal Surgery: No AICD: No Arteriovenous Shunt: No Cardiac Surgery: No Ear Surgery: No Endocrine Surgery: No (has Hypothroidism) Eye Surgery: No Genitourinary Surgery: No Gynecologic Surgery: No Insulin Pump: No Joint Replacement: No Neurologic Surgery: No Oral Surgery: No Pacemaker: No Thoracic Surgery: No Other Surgery: No (per pt) Social History Alcohol Use: No Tobacco Use: No Substance Use: No (PT DENIES) Allergies-Medications (Allergen,Severity, Reaction): Coded Allergies: penicillin G (Unverified Allergy, Severe, RASH, 05/04/17) chicken derived (Unverified Allergy, Mild, 05/04/17) PER MOTHER Reported Meds & Prescriptions Reported Meds & Active Scripts Active [place] ([place] Citrate) 8 Meq/5 Ml (5 Ml) Solution 300 Mg PO Q6HR 10 Days Synthroid (Levothyroxine Sodium) 100 Mcg Tab 100 Mcg PO DAILY@0600 10 Days Restoril (Temazepam) 15 Mg Cap 30 Mg PO HS PRN 10 Days Risperdal M-Tab (Risperidone) 1 Mg Tab 1 Mg PO TID 10 Days Review of Systems ROS Limitations: Psychotic General / Constitutional: No: Fever Eyes: No: Diploplia HENT: No: Headaches Cardiovascular: No: Chest Pain or Discomfort Respiratory: No: Cough Gastrointestinal: No: Nausea, Vomiting Genitourinary: No: Urgency Musculoskeletal: No: Myalgias Skin: No Rash, No Itching Psychiatric: Positive: Disorder of Thought, Mood Disorder, No: Substance Abuse Physical Exam Narrative GENERAL: Well-developed male, somewhat disheveled SKIN: Focused skin assessment warm/dry. HEAD: Atraumatic. Normocephalic. EYES: Pupils equal and round. No scleral icterus. No injection or drainage. ENT: No nasal bleeding or discharge. Mucous membranes pink and moist. NECK: Trachea midline. No JVD. CARDIOVASCULAR: Regular rate and rhythm. No murmur appreciated. RESPIRATORY: No accessory muscle use. Clear to auscultation. Breath sounds equal bilaterally. GASTROINTESTINAL: Abdomen soft, non-tender, nondistended. Hepatic and splenic margins not palpable. MUSCULOSKELETAL: No obvious deformities. No clubbing. No cyanosis. No edema. NEUROLOGICAL: Awake and alert. No obvious cranial nerve deficits. Motor grossly within normal limits. Normal speech. He is oriented to time and date PSYCHIATRIC: Patient is agitated. He is pacing. He is easily upset Data Data Last Documented VS Vital Signs Date Time Temp Pulse Resp B/P (MAP) Pulse Ox O2 Delivery O2 Flow Rate FiO2 06/20/17 08:39 98.5 82 16 138/81 (100) 99 Orders Orders Complete Blood Count With Diff (06/20/17 08:50) Comprehensive Metabolic Panel (06/20/17 08:50) Thyroid Stimulating Hormone (06/20/17 08:50) [place] (Li) (06/20/17 08:50) Drug Screen, Random Urine (06/20/17 08:54) Haloperidol Inj (Haldol Inj) (06/20/17 10:00) Labs Laboratory Tests Test 06/20/17 09:06 White Blood Count 13.3 TH/MM3 Red Blood Count 6.29 MIL/MM3 Hemoglobin 17.2 GM/DL Hematocrit 51.5 % Mean Corpuscular Volume 81.8 FL Mean Corpuscular Hemoglobin 27.4 PG Mean Corpuscular Hemoglobin Concent 33.5 % Red Cell Distribution Width 13.1 % Platelet Count 364 TH/MM3 Mean Platelet Volume 8.3 FL Neutrophils (%) (Auto) 78.1 % Lymphocytes (%) (Auto) 13.1 % Monocytes (%) (Auto) 6.0 % Eosinophils (%) (Auto) 0.6 % Basophils (%) (Auto) 2.2 % Neutrophils # (Auto) 10.4 TH/MM3 Lymphocytes # (Auto) 1.7 TH/MM3 Monocytes # (Auto) 0.8 TH/MM3 Eosinophils # (Auto) 0.1 TH/MM3 Basophils # (Auto) 0.3 TH/MM3 CBC Comment DIFF FINAL Differential Comment Blood Urea Nitrogen 16 MG/DL Creatinine 1.00 MG/DL Random Glucose 119 MG/DL Total Protein 8.4 GM/DL Albumin 4.7 GM/DL Calcium Level 9.6 MG/DL Alkaline Phosphatase 71 U/L Aspartate Amino Transf (AST/SGOT) 12 U/L Alanine Aminotransferase (ALT/SGPT) 27 U/L Total Bilirubin 0.8 MG/DL Sodium Level 145 MEQ/L Potassium Level 3.7 MEQ/L Chloride Level 109 MEQ/L Carbon Dioxide Level 24.3 MEQ/L Anion Gap 12 MEQ/L Estimat Glomerular Filtration Rate 89 ML/MIN Thyroid Stimulating Hormone 3rd Gen 2.190 uIU/ML Urine Opiates Screen NEG Urine Barbiturates Screen NEG Urine Amphetamines Screen NEG Urine Benzodiazepines Screen NEG Urine Cocaine Screen NEG Urine Cannabinoids Screen NEG MDM Medical Decision Making Medical Screen Exam Complete: Yes Emergency Medical Condition: Yes Medical Record Reviewed: Yes Differential Diagnosis Differential includes schizoaffective disorder, bipolar with psychotic features , suicidal Narrative Course This gentleman has not been taking his medications. He says he has not slept for at least 24 hours. He denies suicidal ideation but his mother says that he had suicidal ideation this morning. His mother says he is quite evasive because he does not want admitted to the hospital. I have signed a Bush act. Medical clearance is underway. Hemoglobin is 17 with a white count of 13. Glucose is 119. TSH is 2.9. Patient became increasingly agitated and has been given 5 mg of intravenous Haldol with good effect. He is somewhat sedated. Patient will be transferred to [facility] emergency department under the Bush act. Patient has been advised she is being transferred for psychiatric evaluation at this point is more agreeable. Initially he was refusing to go to [place] Diagnosis Primary Impression: bipolar disorder Additional Impressions: Rachelle act medically clear Nicolas Antoine MD Jun 20, 2017 09:22
[2017-06-20 09:29] LABS: HEMO FLAGS DIFF FINAL
[2017-06-20 09:45] LABS: BLOOD UREA NITROGEN 16 MG/DL (7-18); GLOMERULAR FILTRATION RATE 89 ML/MIN (>89)
[2017-06-20 09:46] LABS: CHLORIDE 109 MEQ/L (98-107); POTASSIUM 3.7 MEQ/L (3.5-5.1); SODIUM (NA) 145 MEQ/L (136-145)
[2017-06-20] MEDS ORDERED: HALOPERIDOL LACTATE 5 MG/ML AMP IV PUSH ONE (10:00)
[2017-06-20 10:22] LABS: ANION GAP 12 MEQ/L (5-15); BICARBONATE 24.3 MEQ/L (21.0-32.0)
[2017-06-20 10:25] LABS: ALT (GPT) 27 U/L (12-78)
[2017-06-20 10:27] LABS: AST (GOT) 12 U/L (15-37)
[2017-06-20 10:28] LABS: ALKALINE PHOSPHATASE 71 U/L (45-117)
[2017-06-20 10:36] LABS: TOTAL BILIRUBIN ADULT 0.8 MG/DL (0.2-1.0)
[2017-06-20 13:57] VITALS: BP 144/85; PULSE 96; RESP 20; TEMP 98; O2SAT 100
[2017-06-20 18:00] VITALS: BP 102/50; PULSE 58; RESP 18
[2017-06-20 22:14] VITALS: BP 98/54; PULSE 63; RESP 16; TEMP 97.5; O2SAT 100
[2017-06-21 06:26] VITALS: BP 104/50; PULSE 54; RESP 17; TEMP 98.6; O2SAT 100
[2017-06-21 11:32] VITALS: BP 108/65; PULSE 76; RESP 18; O2SAT 100
[2017-06-21 14:18] VITALS: BP 143/82; PULSE 94; RESP 18; TEMP 100
[2017-06-21 14:33] VITALS: BP 140/82; PULSE 94; RESP 18; O2SAT 100
[2017-06-21] MEDS ORDERED: MAGNESIUM HYDROXIDE SUSP 30 ML CUP PO PRN (14:45)
[2017-06-21] MEDS ORDERED: LORazepam 2 MG/ML VIAL IM PRN (14:45)
[2017-06-21] MEDS ORDERED: ALUMINUM/MAGNESIUM/SIMETH 30 ML CUP PO PRN (14:45)
--- NOTE | 2017-06-21 14:59 | MH ---
cc: DIXIE ROBERTSON M.D. DATE OF ADMISSION: 06/21/2017 PRESENTING CHIEF COMPLAINT AND HISTORY OF PRESENT ILLNESS This 27-year-old white male was brought to the emergency room of this hospital by his mother where the Bush Act was initiated by the emergency room physician. The patient reportedly had made suicidal statements and was increasingly getting agitated. During this evaluation, however, he denied entertaining any suicidal or homicidal ideations. He was evaluated by the psychiatric screener and the case was discussed with me and it was felt he needed to be hospitalized for further assessment and treatment. Mr. Corrigan is well-known to me from his several previous admissions as well as from outpatient follow-up with me when he was very young. His last admission was only 2 weeks ago at which time he presented with paranoia, auditory hallucinations, agitation, lability of mood. He initially was very uncooperative and did not wish to engage in the sessions but towards the and as he stabilized he became more cooperative. By the end of the admission he was even apologetic for his behavior. The major issue with Mr. Corrigan is his limited insight into his illness and refusal to take medications/comply with outpatient follow-up. This issue has been addressed during previous admissions, but unfortunately he has not been able to internalize the need for him to stay on the medications resulting in frequent hospitalizations. It should also be mentioned that his parents have been involved in his care and have attended treatment team meetings during previous admissions. Please refer to my previous evaluation for details. At the time of this evaluation surprisingly Mr. Corrigan was more cooperative and engaged in the evaluation process. He was rather preoccupied, easily agitated, very labile, guarded. It should be mentioned that in the emergency room he was quite agitated requiring the use of Haldol. When asked about his understanding of the reason for this hospitalization he responded "I asked my mom to take me to the hospital because I was feeling anxious. I remember what you told me last time that I need to stay on my medicine but I didn't." Incidentally serum lithium level in the emergency room was less than 0.1. He was quite vague of about the reason for him not continuing on his medications. When this was being explored he suddenly became quite agitated and gave a totally inappropriate response pointing to his teeth saying that one of his teeth was missing. He then went on to talk about his fear that people were going to inject him with "drugs" etc. While this was being explored he started getting agitated and started punching his hand with his face, however, he was redirected and calmed down. He again apologized for this behavior. He stated that he has not been sleeping well and his appetite has been "not so good." He denied experiencing any auditory hallucinations though he seemed to be responding to them. It should be mentioned that during his last admission he also exhibited behavior indicative of him responding to internal stimuli, however, when questioned directly he would deny it. He denied entertaining any suicidal thoughts and disputed the information provided by his mother "I never said I was going to kill myself. I said I was just anxious." He denied any recent history of violence. He again denied any previous suicide attempts. No other significant psychosocial stressor could be identified at this time. PAST PSYCHIATRIC HISTORY, PAST MEDICAL HISTORY, FAMILY HISTORY, PERSONAL HISTORY: Please refer to my previous evaluations for details. He has a history of hypothyroidism and is on Synthroid 100 mcg daily. He was discharged on lithium 200 mg q.6h., Risperdal M 1 mg t.i.d. and Restoril 30 mg p.o. q.h.s. p.r.n. for insomnia. He denied any new medical issues since discharge. Specifically, denied any cardiovascular issues, history of head injury or seizures. CLINICAL OBSERVATION AND MENTAL STATUS EXAMINATION At the time of this evaluation he presented as a poorly groomed unkempt white male who looked his stated age. He was quite labile, i.e., being pleasant, polite and cooperative to agitated to a point where he would start punching his hand with his face and then burst into tears pleading for help, etc. His responses to questions at times were irrelevant and illogical. His speech was coherent, somewhat rapid. His affect was labile, predominantly depressed. Subjectively, he described his mood as "I've been feeling anxious." Thought process revealed tangentiality and flight of ideas. As mentioned he seemed preoccupied with delusions believing that he was going to be locked up in the basement and people are going to inject drugs into his veins, etc. He also seemed to be experiencing auditory hallucinations though when questioned directly he denied their presence. He denied entertaining any suicidal thoughts or any previous suicide attempts. He denied any homicidal ideations or intent at this time. Cognitive functions: He was alert and oriented to time, place, person and situation. He refused to answer questions to test his memory formally but based on my past experience it has been within normal limits. His judgment and insight is obviously poor. REVIEW OF SYSTEMS He denied any diarrhea, vomiting or abdominal pain. He denied dysuria, hematuria or frequency. He denied any chest pain, palpitations, dyspnea on exertion. He denied muscle weakness, numbness or history of seizures. PHYSICAL EXAMINATION Physical examination was not done at this has already been done in the emergency room and no acute medical issues have been identified. No gross neurological deficits are noticed at this time. DIAGNOSTIC IMPRESSION Robinson I: Bipolar affective disorder mixed with psychotic features. Robinson II: No diagnosis. Robinson II: Asperger's syndrome. Robinson III: Hypothyroidism. Robinson IV: Severity of psychosocial stressors moderate, i.e., chronic psychiatric illness, conflictual relationship with parents, limited financial resources. Robinson V: Current GAF score 30. FORMULATION AND TREATMENT PLAN Based on this evaluation and my knowledge of his case Mr. Corrigan is exhibiting a mixed picture of bipolar affective disorder, predominantly depressive symptoms more noticeable at this time. As usual his current decompensation is due to noncompliance with medications. As I mentioned he has very limited insight in regards to his illness/need for psychotropic medications, etc. Despite best efforts during previous hospitalizations it seems he has not internalized this concept. He had responded well to a combination of Risperdal and lithium during the last admission in regards to his mood instability and psychosis. As such he will be restarted on it. The above-mentioned issues will be further explored and addressed in individual psychotherapy sessions. He will participate in various unit activities, i.e., occupational therapy, recreational therapy, group therapy. Involuntary admission will be initiated. IDENTIFIED PROBLEMS 1. Mood swings. 2. Psychosis. 3. Noncompliance. ASSETS 1. He is verbal. 2. Supportive parents. ESTIMATED LENGTH OF STAY 5-7 days. MD RENA Charles/MARK /2:18 PM /2:38 PM
[2017-06-21] MEDS: ACETAMINOPHEN 325 MG TAB PO PRN (16:52)
[2017-06-21] MEDS: LITHIUM ORAL SOLUTION 300 MG/5 ML CUP PO SCH ×2 (16:55→21:00)
[2017-06-21] MEDS: risperiDONE 1 MG TAB PO SCH (17:53)
[2017-06-21] MEDS: REMOVE OLD NICOTINE PATCH T-DERMAL SCH (21:00)
[2017-06-22] MEDS: LITHIUM ORAL SOLUTION 300 MG/5 ML CUP PO SCH ×4 (03:00→17:55)
[2017-06-22] MEDS: NICOTINE 21 MG/24 HR PATCH T-DERMAL SCH (09:00)
[2017-06-22] MEDS: risperiDONE 1 MG TAB PO SCH ×3 (09:11→17:55)
[2017-06-22 10:25] LABS: ANION GAP 6 MEQ/L (5-15); BLOOD UREA NITROGEN 12 MG/DL (7-18); CHLORIDE 105 MEQ/L (98-107); GLOMERULAR FILTRATION RATE 91 ML/MIN (>89); POTASSIUM 4.1 MEQ/L (3.5-5.1); SODIUM (NA) 140 MEQ/L (136-145)
[2017-06-22 10:29] LABS: HDL CHOLESTEROL 44.2 MG/DL (40.0-60.0); LDL CHOLESTEROL 71 MG/DL (0-99)
--- NOTE | 2017-06-22 14:46 | HHI.PYPN ---
Subjective Remarks The patient is a 27-year-old man, with psychiatric history of Asperger syndrome, bipolar disorder, multiple psychiatric hospitalizations, history of noncompliance with medications, who is hospitalized now due to agitation, mixed manic/depressive behavior, no compliance with medications, repeated suicidal statements. On psychiatric evaluation today patient is found in the recreational area of the psychiatric quick, he seems to be internally stimulated, religiously preoccupied, but mostly cooperative. Patient says that he is hospitalized due to panic attack, he denies being agitated and aggressive before. He doesn't seem to have an insight of underlying psychiatric condition. He denies suicidal and homicidal ideation, he denies visual and auditory hallucinations. She has been compliant with medications in the unit, no agitation or aggressive behavior reported. Review of Systems Other No somatic complaints Objective Alert: Yes [place]: Person, Place, Date Mood: Calm Affect: Appropriate Memory Intact: Immediate, Recent, Remote Hallucinations: Other (no hallucination) Delusions: No Delusion Type: Other (patient seems to be religiously preoccupied) Suicidal: Ideation (no SI) Homicidal: Ideation (no HI) Insight/Judgment Poor Labs Test 06/22/17 09:15 Blood Urea Nitrogen 12 MG/DL Creatinine 0.98 MG/DL Random Glucose 82 MG/DL Calcium Level 9.1 MG/DL Sodium Level 140 MEQ/L Potassium Level 4.1 MEQ/L Chloride Level 105 MEQ/L Carbon Dioxide Level 29.0 MEQ/L Anion Gap 6 MEQ/L Estimat Glomerular Filtration Rate 91 ML/MIN Triglycerides Level 120 MG/DL Cholesterol Level 139 MG/DL LDL Cholesterol 71 MG/DL HDL Cholesterol 44.2 MG/DL Cholesterol/HDL Ratio 3.14 RATIO Vitals/IOs Vital Signs Date Time Temp Pulse Resp B/P (MAP) Pulse Ox O2 Delivery O2 Flow Rate FiO2 06/21/17 14:33 94 18 140/82 (101) 100 Room Air 06/21/17 14:18 100.0 Intake and Output 06/22/17 06/22/17 06/23/17 08:00 16:00 00:00 Intake Total 240 ml Balance 240 ml Assessment & Plan Problem List: (1) Bipolar affective disorder, manic, mild ICD Codes: F31.11 - Bipolar disorder, current episode manic without psychotic features, mild Status: Acute Assessment & Plan: I have seen and examined this patient, reviewed the documentation, I agree and concur with Dr. Saeed's assessment and plan. Assessment & Plan Estimated LOS: days Justification for Cont. Inpt. Patient needs to continue psychiatric hospitalization for stabilization. Octavio Telles MD Jun 22, 2017 14:46
[2017-06-22 16:42] LABS: HEMOGLOBIN A1a 0.8 %; HEMOGLOBIN A1b 1.7 %; HEMOGLOBIN Ao 86.6 %; HEMOGLOBIN LA1C 1.8 %; HEMOGLOBIN P3 3.4 %
[2017-06-22 18:13] VITALS: BP 82/46; PULSE 64; RESP 17; TEMP 98.3; O2SAT 98
[2017-06-22] MEDS: REMOVE OLD NICOTINE PATCH T-DERMAL SCH (21:00)
[2017-06-23 05:36] VITALS: BP 85/42; PULSE 98; RESP 18; TEMP 97
[2017-06-23] MEDS: LEVOTHYROXINE SODIUM 100 MCG TAB PO SCH (05:39)
[2017-06-23] MEDS: risperiDONE 1 MG TAB PO SCH ×3 (08:52→17:51)
[2017-06-23] MEDS: LITHIUM ORAL SOLUTION 300 MG/5 ML CUP PO SCH ×3 (08:53→17:51)
[2017-06-23] MEDS: NICOTINE 21 MG/24 HR PATCH T-DERMAL SCH (08:53)
[2017-06-23] MEDS: REMOVE OLD NICOTINE PATCH T-DERMAL SCH (08:54)
--- NOTE | 2017-06-23 16:27 | PD.TTN ---
Patient Problems 1. Discharge planning 2. Medication compliance 3. Knowledge deficit 4. Lack of coping skills Progress Toward Goals Provider Present: Dr. Jeanmarie Saeed Provider Input: Patient is compliant with medications on the unit but has limited insight upon his mental illness. patient is argumentative and is becomes defensive with provider. Psychiatric Counselors Present: PADMAJA Cason Psych Therapist Input: Patient does not acknowledge his lack of medication compliant and believes that he does not need to take it. patient is easily agitated and is not able to answer questions appropriately. Brianna TejedaYoselin Jun 23, 2017 16:27
[2017-06-23 17:03] VITALS: BP 129/66; PULSE 96; RESP 18; TEMP 97; O2SAT 97
[2017-06-24] MEDS: LEVOTHYROXINE SODIUM 100 MCG TAB PO SCH (05:11)
[2017-06-24 05:53] VITALS: BP 100/67; PULSE 63; RESP 18; TEMP 96.3; O2SAT 100
[2017-06-24 06:10] VITALS: BP 100/67; PULSE 63; RESP 18; TEMP 96.3; O2SAT 100
[2017-06-24] MEDS: NICOTINE 21 MG/24 HR PATCH T-DERMAL SCH (08:24)
[2017-06-24] MEDS: LITHIUM ORAL SOLUTION 300 MG/5 ML CUP PO SCH ×3 (08:25→17:24)
[2017-06-24] MEDS: risperiDONE 1 MG TAB PO SCH ×3 (08:25→17:24)
[2017-06-24 18:31] VITALS: BP 114/55; PULSE 70; RESP 16; TEMP 98.2; O2SAT 100
[2017-06-24] MEDS: REMOVE OLD NICOTINE PATCH T-DERMAL SCH (21:00)
[2017-06-25 05:49] VITALS: BP 89/64; PULSE 69; RESP 17; TEMP 97.6; O2SAT 100
[2017-06-25] MEDS: LEVOTHYROXINE SODIUM 100 MCG TAB PO SCH (06:06)
[2017-06-25] MEDS: LITHIUM ORAL SOLUTION 300 MG/5 ML CUP PO SCH ×3 (08:12→17:46)
[2017-06-25] MEDS: risperiDONE 1 MG TAB PO SCH ×3 (08:12→17:46)
[2017-06-25] MEDS: ACETAMINOPHEN 325 MG TAB PO PRN (08:15)
[2017-06-25] MEDS: NICOTINE 21 MG/24 HR PATCH T-DERMAL SCH (08:16)
[2017-06-25 18:00] VITALS: BP 108/59; PULSE 68; RESP 18; TEMP 98; O2SAT 97
[2017-06-25] MEDS: REMOVE OLD NICOTINE PATCH T-DERMAL SCH (21:00)
[2017-06-26] MEDS: LEVOTHYROXINE SODIUM 100 MCG TAB PO SCH (05:44)
[2017-06-26 06:12] VITALS: BP 101/62; PULSE 68; RESP 18; TEMP 98.2; O2SAT 100
[2017-06-26] MEDS: LORazepam 1 MG TAB PO PRN (06:47)
[2017-06-26] MEDS: LITHIUM ORAL SOLUTION 300 MG/5 ML CUP PO SCH ×4 (08:43→23:11)
[2017-06-26] MEDS: risperiDONE 1 MG TAB PO SCH ×3 (08:43→18:11)
[2017-06-26] MEDS: NICOTINE 21 MG/24 HR PATCH T-DERMAL SCH (08:46)
[2017-06-26 09:06] LABS: AUTOMATED NEUTROPHIL # 6.1 TH/MM3 (1.8-7.7); BASOPHIL # 0.1 TH/MM3 (0-0.2); BASOPHIL % 0.6 % (0.0-2.0); EOSINOPHIL # 0.2 TH/MM3 (0-0.4); EOSINOPHIL % 2.8 % (0.0-4.0); HEMATOCRIT 50.2 % (39.0-51.0); HEMO FLAGS DIFF FINAL; LYMPH % 16.4 % (9.0-44.0); LYMPHOCYTE # 1.3 TH/MM3 (1.0-4.8); MEAN CELL VOLUME 83.4 FL (80.0-100.0); MEAN CORPUSCULAR HEMOGLOBIN 27.6 PG (27.0-34.0); MEAN CORPUSCULAR HGB CONC 33.1 % (32.0-36.0); MONO % 5.3 % (0.0-8.0); NEUT % 74.9 % (16.0-70.0); PLATELET COUNT 247 TH/MM3 (150-450); RED BLOOD COUNT 6.02 MIL/MM3 (4.50-5.90); RED CELL DISTRIBUTION WIDTH 13.7 % (11.6-17.2); WHITE BLOOD COUNT 8.1 TH/MM3 (4.0-11.0)
[2017-06-26 09:40] LABS: ANION GAP 5 MEQ/L (5-15); AST (GOT) 9 U/L (15-37); BICARBONATE 30.3 MEQ/L (21.0-32.0); BLOOD UREA NITROGEN 11 MG/DL (7-18); CHLORIDE 104 MEQ/L (98-107); GLOMERULAR FILTRATION RATE 97 ML/MIN (>89); POTASSIUM 3.8 MEQ/L (3.5-5.1); SODIUM (NA) 139 MEQ/L (136-145)
[2017-06-26 09:41] LABS: ALT (GPT) 25 U/L (12-78)
[2017-06-26 09:44] LABS: ALKALINE PHOSPHATASE 65 U/L (45-117); TOTAL BILIRUBIN ADULT 0.3 MG/DL (0.2-1.0)
[2017-06-26 18:14] VITALS: BP 93/52; PULSE 54; RESP 16; TEMP 98.4; O2SAT 98
[2017-06-26] MEDS: REMOVE OLD NICOTINE PATCH T-DERMAL SCH (21:00)
[2017-06-27 05:30] VITALS: BP 90/54; PULSE 64; RESP 17; TEMP 98; O2SAT 100
[2017-06-27] MEDS: LEVOTHYROXINE SODIUM 100 MCG TAB PO SCH (06:23)
[2017-06-27] MEDS: LITHIUM ORAL SOLUTION 300 MG/5 ML CUP PO SCH ×4 (06:23→23:03)
[2017-06-27] MEDS: risperiDONE 1 MG TAB PO SCH ×3 (08:39→18:00)
[2017-06-27] MEDS: NICOTINE 21 MG/24 HR PATCH T-DERMAL SCH (08:54)
[2017-06-27 16:51] VITALS: BP 141/60; PULSE 103; RESP 18; TEMP 97.7; O2SAT 100
[2017-06-27] MEDS: REMOVE OLD NICOTINE PATCH T-DERMAL SCH (21:00)
[2017-06-28] MEDS: LITHIUM ORAL SOLUTION 300 MG/5 ML CUP PO SCH ×4 (05:43→23:27)
[2017-06-28] MEDS: LEVOTHYROXINE SODIUM 100 MCG TAB PO SCH (05:43)
[2017-06-28 06:37] VITALS: BP 95/53; PULSE 70; RESP 16; TEMP 98.3; O2SAT 97
[2017-06-28] MEDS: risperiDONE 1 MG TAB PO SCH ×3 (08:24→17:36)
[2017-06-28] MEDS: NICOTINE 21 MG/24 HR PATCH T-DERMAL SCH (08:24)
[2017-06-28 18:00] VITALS: BP 97/57; PULSE 109; RESP 16; TEMP 98.5; O2SAT 100
[2017-06-28] MEDS: REMOVE OLD NICOTINE PATCH T-DERMAL SCH (21:00)
[2017-06-29 05:55] VITALS: BP 96/53; PULSE 54; RESP 16; TEMP 97.5; O2SAT 100
[2017-06-29] MEDS: LITHIUM ORAL SOLUTION 300 MG/5 ML CUP PO SCH ×3 (06:29→18:00)
[2017-06-29] MEDS: LEVOTHYROXINE SODIUM 100 MCG TAB PO SCH (06:29)
[2017-06-29] MEDS: risperiDONE 1 MG TAB PO SCH ×3 (09:00→18:00)
[2017-06-29] MEDS: NICOTINE 21 MG/24 HR PATCH T-DERMAL SCH (09:00)
[2017-06-29 18:45] VITALS: BP 120/65; PULSE 70; RESP 18; TEMP 98; O2SAT 100
[2017-06-29] MEDS: REMOVE OLD NICOTINE PATCH T-DERMAL SCH (21:00)
[2017-06-30] MEDS: LITHIUM ORAL SOLUTION 300 MG/5 ML CUP PO SCH ×5 (06:00→22:54)
[2017-06-30] MEDS: LEVOTHYROXINE SODIUM 100 MCG TAB PO SCH (06:00)
[2017-06-30 06:13] VITALS: BP_SYST 95; PULSE 57; RESP 18; TEMP 98.3
[2017-06-30] MEDS: risperiDONE 1 MG TAB PO SCH ×3 (09:00→16:58)
[2017-06-30] MEDS: NICOTINE 21 MG/24 HR PATCH T-DERMAL SCH (09:00)
[2017-06-30 18:00] VITALS: BP 116/89; PULSE 84; RESP 18; TEMP 98; O2SAT 100
[2017-06-30] MEDS: REMOVE OLD NICOTINE PATCH T-DERMAL SCH (21:00)
[2017-07-01 05:37] VITALS: BP 94/53; PULSE 63; RESP 16; TEMP 97.2; O2SAT 99
[2017-07-01] MEDS: LITHIUM ORAL SOLUTION 300 MG/5 ML CUP PO SCH ×4 (06:07→23:44)
[2017-07-01] MEDS: LEVOTHYROXINE SODIUM 100 MCG TAB PO SCH (06:07)
[2017-07-01] MEDS: risperiDONE 1 MG TAB PO SCH ×3 (08:26→18:19)
[2017-07-01] MEDS: NICOTINE 21 MG/24 HR PATCH T-DERMAL SCH (08:26)
--- NOTE | 2017-07-01 12:10 | EKG ---
Date Performed: 06/30/2017 Time Performed: 20:15:58 PTAGE: 27 years EKG: Sinus rhythm NORMAL ECG NO PREVIOUS TRACING DOCTOR: Haley Velazco Interpretating Date/Time 07/01/2017 12:09:01
[2017-07-01] MEDS ORDERED: buPROPion HCL 150 MG SUSTAINED RELEASE TAB PO SCH (14:00)
[2017-07-01 17:02] VITALS: BP 105/54; PULSE 70; RESP 17; TEMP 98; O2SAT 99
[2017-07-01] MEDS: buPROPion HCL 100 MG SUSTAINED RELEASE TAB PO SCH (18:38)
[2017-07-01] MEDS: REMOVE OLD NICOTINE PATCH T-DERMAL SCH (19:39)
[2017-07-02] MEDS: LEVOTHYROXINE SODIUM 100 MCG TAB PO SCH (05:14)
[2017-07-02] MEDS: LITHIUM ORAL SOLUTION 300 MG/5 ML CUP PO SCH ×3 (05:14→17:41)
[2017-07-02 06:36] VITALS: BP 95/52; PULSE 90; RESP 18; TEMP 98; O2SAT 98
[2017-07-02] MEDS: buPROPion HCL 100 MG SUSTAINED RELEASE TAB PO SCH (08:15)
[2017-07-02] MEDS: risperiDONE 1 MG TAB PO SCH ×3 (08:15→17:41)
[2017-07-02] MEDS: NICOTINE 21 MG/24 HR PATCH T-DERMAL SCH (08:15)
[2017-07-02] MEDS: REMOVE OLD NICOTINE PATCH T-DERMAL SCH (20:17)
[2017-07-03] MEDS: LITHIUM ORAL SOLUTION 300 MG/5 ML CUP PO SCH ×5 (01:29→23:38)
[2017-07-03 05:35] VITALS: BP 103/52; PULSE 58; RESP 17; TEMP 98.3; O2SAT 99
[2017-07-03] MEDS: LEVOTHYROXINE SODIUM 100 MCG TAB PO SCH (06:32)
[2017-07-03] MEDS: buPROPion HCL 100 MG SUSTAINED RELEASE TAB PO SCH (08:37)
[2017-07-03] MEDS: risperiDONE 1 MG TAB PO SCH ×3 (08:37→18:00)
[2017-07-03] MEDS: NICOTINE 21 MG/24 HR PATCH T-DERMAL SCH (08:38)
[2017-07-03 18:00] VITALS: BP 116/56; PULSE 70; RESP 16; TEMP 98.6; O2SAT 100
[2017-07-03] MEDS: REMOVE OLD NICOTINE PATCH T-DERMAL SCH (20:37)
[2017-07-04] MEDS: LITHIUM ORAL SOLUTION 300 MG/5 ML CUP PO SCH ×4 (05:33→23:01)
[2017-07-04] MEDS: LEVOTHYROXINE SODIUM 100 MCG TAB PO SCH (05:33)
[2017-07-04 05:44] VITALS: BP 99/54; PULSE 55; RESP 16; TEMP 97.8; O2SAT 97
[2017-07-04] MEDS: NICOTINE 21 MG/24 HR PATCH T-DERMAL SCH (09:00)
[2017-07-04] MEDS: buPROPion HCL 100 MG SUSTAINED RELEASE TAB PO SCH (09:08)
[2017-07-04] MEDS: risperiDONE 1 MG TAB PO SCH ×3 (09:08→17:47)
[2017-07-04 09:37] LABS: BASOPHIL % 0.3 % (0.0-2.0); EOSINOPHIL # 0.2 TH/MM3 (0-0.4); EOSINOPHIL % 2.6 % (0.0-4.0); HEMATOCRIT 45.1 % (39.0-51.0); HEMO FLAGS DIFF FINAL; LYMPH % 13.9 % (9.0-44.0); LYMPHOCYTE # 1.3 TH/MM3 (1.0-4.8); MEAN CELL VOLUME 82.5 FL (80.0-100.0); MEAN CORPUSCULAR HEMOGLOBIN 27.9 PG (27.0-34.0); MEAN CORPUSCULAR HGB CONC 33.8 % (32.0-36.0); MONO % 6.5 % (0.0-8.0); NEUT % 76.7 % (16.0-70.0); PLATELET COUNT 219 TH/MM3 (150-450); RED BLOOD COUNT 5.47 MIL/MM3 (4.50-5.90); RED CELL DISTRIBUTION WIDTH 13.8 % (11.6-17.2); WHITE BLOOD COUNT 9.1 TH/MM3 (4.0-11.0)
[2017-07-04 10:18] LABS: ANION GAP 8 MEQ/L (5-15); AST (GOT) 8 U/L (15-37); BICARBONATE 28.1 MEQ/L (21.0-32.0); BLOOD UREA NITROGEN 10 MG/DL (7-18); CHLORIDE 104 MEQ/L (98-107); GLOMERULAR FILTRATION RATE 103 ML/MIN (>89); POTASSIUM 3.8 MEQ/L (3.5-5.1); SODIUM (NA) 140 MEQ/L (136-145)
[2017-07-04 10:19] LABS: ALT (GPT) 22 U/L (12-78)
[2017-07-04 10:29] LABS: ALKALINE PHOSPHATASE 57 U/L (45-117); TOTAL BILIRUBIN ADULT 0.3 MG/DL (0.2-1.0)
[2017-07-04] MEDS: LORazepam 1 MG TAB PO PRN (14:49)
[2017-07-04 16:51] VITALS: BP 103/62; PULSE 76; RESP 18; TEMP 97.3; O2SAT 100
[2017-07-04] MEDS: REMOVE OLD NICOTINE PATCH T-DERMAL SCH (20:56)
[2017-07-05 05:31] VITALS: BP 96/59; PULSE 82; RESP 16; TEMP 98.4; O2SAT 100
[2017-07-05] MEDS: LEVOTHYROXINE SODIUM 100 MCG TAB PO SCH (05:35)
[2017-07-05] MEDS: LITHIUM ORAL SOLUTION 300 MG/5 ML CUP PO SCH ×3 (05:36→16:53)
[2017-07-05] MEDS: buPROPion HCL 100 MG SUSTAINED RELEASE TAB PO SCH (08:12)
[2017-07-05] MEDS: risperiDONE 1 MG TAB PO SCH ×3 (08:12→16:52)
[2017-07-05] MEDS: NICOTINE 21 MG/24 HR PATCH T-DERMAL SCH (08:12)
[2017-07-05] MEDS: ACETAMINOPHEN 325 MG TAB PO PRN (08:33)
[2017-07-05 17:34] VITALS: BP 103/62; PULSE 95; RESP 18; TEMP 99.5; O2SAT 95
[2017-07-05] MEDS: LORazepam 1 MG TAB PO PRN (18:42)
[2017-07-05] MEDS: TEMAZEPAM 15 MG CAP PO PRN (21:38)
[2017-07-06] MEDS: LEVOTHYROXINE SODIUM 100 MCG TAB PO SCH (05:37)
[2017-07-06] MEDS: LITHIUM ORAL SOLUTION 300 MG/5 ML CUP PO SCH ×5 (05:37→23:27)
[2017-07-06 05:59] VITALS: BP 92/52; PULSE 63; RESP 16; TEMP 97.8; O2SAT 100
[2017-07-06] MEDS: buPROPion HCL 100 MG SUSTAINED RELEASE TAB PO SCH (08:39)
[2017-07-06] MEDS: risperiDONE 1 MG TAB PO SCH ×3 (08:39→18:13)
[2017-07-06] MEDS: LORazepam 1 MG TAB PO PRN (09:20)
[2017-07-06 18:14] VITALS: BP 100/57; PULSE 75; RESP 18; TEMP 98.4; O2SAT 100
[2017-07-07] MEDS: LEVOTHYROXINE SODIUM 100 MCG TAB PO SCH (05:43)
[2017-07-07] MEDS: LITHIUM ORAL SOLUTION 300 MG/5 ML CUP PO SCH ×3 (05:43→17:19)
[2017-07-07 06:15] VITALS: BP 97/67; PULSE 79; RESP 18; TEMP 97.1; O2SAT 100
[2017-07-07] MEDS: buPROPion HCL 100 MG SUSTAINED RELEASE TAB PO SCH (08:04)
[2017-07-07] MEDS: risperiDONE 1 MG TAB PO SCH ×3 (08:04→17:19)
--- NOTE | 2017-07-07 16:35 | PD.TTN ---
Patient Problems 1. Discharge planning 2. Medication compliance 3. Knowledge deficit 4. Lack of coping skills Progress Toward Goals Provider Present: Dr. Jeanmarie Saeed Provider Input: Patient is continuing to be compliant with medications and will have medication adjustment to stablize depressed mood. Patient's lithium level is at a theraputic range. Nurse(s) Input: Patient is observed to be sleeping more and isolative to room. Patient is eating and doing basic ADLs. Psychiatric Counselors Present: PADMAJA Cason Psych Therapist Input: Patient is observed to be more tearful during each session. Patient is able to acknowledge that he does need to be compliant with medication. Patient and family agreed to contract in order for patient to return home once stablized. Brianna Tejeda Jul 07, 2017 16:35
[2017-07-07 17:43] VITALS: BP 111/69; PULSE 89; RESP 18; TEMP 97.9; O2SAT 100
[2017-07-08] MEDS: LITHIUM ORAL SOLUTION 300 MG/5 ML CUP PO SCH ×4 (00:45→17:41)
[2017-07-08] MEDS: LEVOTHYROXINE SODIUM 100 MCG TAB PO SCH (05:18)
[2017-07-08 06:18] VITALS: BP 101/62; PULSE 60; RESP 16; TEMP 97.6; O2SAT 99
[2017-07-08] MEDS: risperiDONE 1 MG TAB PO SCH ×3 (08:24→17:41)
[2017-07-08] MEDS: buPROPion HCL 100 MG SUSTAINED RELEASE TAB PO SCH (08:24)
[2017-07-08 16:17] VITALS: BP 113/57; PULSE 75; RESP 17; TEMP 97.1
[2017-07-08] MEDS: TEMAZEPAM 15 MG CAP PO PRN (21:32)
[2017-07-09] MEDS: LITHIUM ORAL SOLUTION 300 MG/5 ML CUP PO SCH ×5 (00:04→23:39)
[2017-07-09] MEDS: LEVOTHYROXINE SODIUM 100 MCG TAB PO SCH (06:00)
[2017-07-09 06:12] VITALS: BP 102/64; PULSE 66; RESP 16; TEMP 98; O2SAT 100
[2017-07-09] MEDS: buPROPion HCL 100 MG SUSTAINED RELEASE TAB PO SCH (08:55)
[2017-07-09] MEDS: risperiDONE 1 MG TAB PO SCH ×3 (08:55→17:38)
[2017-07-09 17:30] VITALS: BP 110/71; PULSE 98; RESP 17; TEMP 98.8; O2SAT 99
[2017-07-10] MEDS: LORazepam 1 MG TAB PO PRN (00:45)
[2017-07-10 05:50] VITALS: BP 108/56; PULSE 70; RESP 16; TEMP 98.3; O2SAT 100
[2017-07-10] MEDS: LEVOTHYROXINE SODIUM 100 MCG TAB PO SCH (06:12)
[2017-07-10] MEDS: LITHIUM ORAL SOLUTION 300 MG/5 ML CUP PO SCH ×4 (06:12→23:34)
[2017-07-10] MEDS: risperiDONE 1 MG TAB PO SCH ×3 (08:41→17:41)
[2017-07-10] MEDS: buPROPion HCL 100 MG SUSTAINED RELEASE TAB PO SCH (08:42)
[2017-07-10 18:09] VITALS: BP 102/59; PULSE 95; RESP 16; TEMP 98.6; O2SAT 99
[2017-07-10] MEDS: TEMAZEPAM 15 MG CAP PO PRN (23:38)
[2017-07-11] MEDS: LITHIUM ORAL SOLUTION 300 MG/5 ML CUP PO SCH ×4 (06:02→23:01)
[2017-07-11] MEDS: LEVOTHYROXINE SODIUM 100 MCG TAB PO SCH (06:02)
[2017-07-11 06:12] VITALS: BP 121/73; PULSE 105; RESP 16; TEMP 98.2; O2SAT 98
[2017-07-11] MEDS: risperiDONE 1 MG TAB PO SCH ×3 (08:30→17:23)
[2017-07-11] MEDS: buPROPion HCL 100 MG SUSTAINED RELEASE TAB PO SCH (08:30)
[2017-07-11 16:35] VITALS: BP 100/55; PULSE 85; RESP 18; TEMP 98; O2SAT 99
[2017-07-12] MEDS: LEVOTHYROXINE SODIUM 100 MCG TAB PO SCH (05:49)
[2017-07-12] MEDS: LITHIUM ORAL SOLUTION 300 MG/5 ML CUP PO SCH ×4 (05:49→23:42)
[2017-07-12 05:57] VITALS: BP 101/67; PULSE 91; RESP 16; TEMP 98.2; O2SAT 100
[2017-07-12 07:36] LABS: AUTOMATED NEUTROPHIL # 9.6 TH/MM3 (1.8-7.7); BASOPHIL # 0.1 TH/MM3 (0-0.2); BASOPHIL % 0.4 % (0.0-2.0); EOSINOPHIL # 0.4 TH/MM3 (0-0.4); EOSINOPHIL % 3.4 % (0.0-4.0); HEMATOCRIT 46.3 % (39.0-51.0); HEMO FLAGS DIFF FINAL; LYMPH % 14.4 % (9.0-44.0); LYMPHOCYTE # 1.8 TH/MM3 (1.0-4.8); MEAN CORPUSCULAR HEMOGLOBIN 27.2 PG (27.0-34.0); MEAN CORPUSCULAR HGB CONC 33.2 % (32.0-36.0); MONO % 5.7 % (0.0-8.0); NEUT % 76.1 % (16.0-70.0); PLATELET COUNT 246 TH/MM3 (150-450); RED BLOOD COUNT 5.65 MIL/MM3 (4.50-5.90); RED CELL DISTRIBUTION WIDTH 13.9 % (11.6-17.2); WHITE BLOOD COUNT 12.6 TH/MM3 (4.0-11.0)
[2017-07-12 08:13] LABS: ALT (GPT) 22 U/L (12-78); ANION GAP 9 MEQ/L (5-15); AST (GOT) 15 U/L (15-37); BICARBONATE 26.9 MEQ/L (21.0-32.0); BLOOD UREA NITROGEN 12 MG/DL (7-18); CHLORIDE 106 MEQ/L (98-107); GLOMERULAR FILTRATION RATE 92 ML/MIN (>89); POTASSIUM 3.8 MEQ/L (3.5-5.1); SODIUM (NA) 142 MEQ/L (136-145)
[2017-07-12 08:16] LABS: ALKALINE PHOSPHATASE 65 U/L (45-117); TOTAL BILIRUBIN ADULT 0.4 MG/DL (0.2-1.0)
[2017-07-12] MEDS: risperiDONE 1 MG TAB PO SCH ×3 (08:31→17:39)
[2017-07-12] MEDS: buPROPion HCL 100 MG SUSTAINED RELEASE TAB PO SCH (08:31)
[2017-07-12 15:31] VITALS: BP 103/56; PULSE 76; RESP 18; TEMP 97.9; O2SAT 98
[2017-07-12] MEDS: TEMAZEPAM 15 MG CAP PO PRN (20:59)
[2017-07-13] MEDS: LEVOTHYROXINE SODIUM 100 MCG TAB PO SCH (05:32)
[2017-07-13] MEDS: LITHIUM ORAL SOLUTION 300 MG/5 ML CUP PO SCH ×2 (05:32→12:29)
[2017-07-13 05:43] VITALS: BP 86/50; PULSE 91; RESP 18; TEMP 98; O2SAT 99
[2017-07-13] MEDS: buPROPion HCL 100 MG SUSTAINED RELEASE TAB PO SCH (09:00)
[2017-07-13] MEDS: risperiDONE 1 MG TAB PO SCH ×2 (09:10→14:11)
[2017-07-13] MEDS ORDERED: buPROPion HCL 150 MG SUSTAINED RELEASE TAB PO SCH (09:28)
[2017-07-13] MEDS ORDERED: LITH1TAB3 PO (14:17)
[2017-07-13] MEDS ORDERED: BUPR150CR PO (14:17)
[2017-07-13] MEDS ORDERED: LEVO.1 PO (14:17)
[2017-07-13] MEDS ORDERED: RISP1 PO (14:17)
--- NOTE | 2017-07-13 20:06 | MD ---
cc: DIXIE ROBERTSON M.D. ADMISSION DATE: 06/21/2017 DISCHARGE DATE: 07/13/2017 ADMISSION DIAGNOSES Benson I: Bipolar affective disorder mixed with psychotic features. Benson II: Asperger syndrome. Benson III: Hypothyroidism. Benson IV: Severity of psychosocial stressors moderate i.e. chronic psychiatric illness, conflictual relationship with parents, limited financial resources. Benson V: Current GAF score of 30 DISCHARGE DIAGNOSES Benson I: Bipolar affective disorder mixed with psychotic features. Benson II: Asperger syndrome. Benson III: Hypothyroidism. Benson IV: Severity of psychosocial stressors moderate i.e. chronic psychiatric illness, conflictual relationship with parents, limited financial resources. Benson V: Current GAF score of 60. HISTORY This 27-year-old white male was brought to the emergency room of this hospital by his mother where the Bush ACT was initiated by the emergency room physician. He reportedly had made suicidal statements and was increasingly getting agitated. Please refer to my initial evaluation for details. LABORATORY FINDINGS CBC with differential was repeated on different dates and on 07/12 his WBC count was 12.6 which was felt to be secondary to lithium. CMP was also repeated on different dates and on 07/12/2017 it was unremarkable. T4, TSH were normal. Urine drug screen was negative. Serum lithium level was monitored on different dates and on 07/12 it was 1.0. EKG unremarkable. HOSPITAL COURSE Initially he was quite labile, i.e. from being angry and hostile to being tearful. His responses to questions were rather tangential. At times his speech was rapid and pressured. Gradually he began to settle down by restarting him on lithium and Risperdal. A small dose of Ativan was also added. It took him several days to settle down. Specifically his lability of mood subsided. He began to develop some insight into his issues and the reason for frequent hospitalizations. Towards the end of this admission he was able to recognize the need for him to continue on the medication / outpatient follow up. His parents were invited to the treatment team meeting and they also acknowledged that unless he stays on his medications it is going to be a revolving door. As such a therapeutic contract was recommended which they completed. Copy of this is of the chart. He agreed to comply with the medications and should he not the parents would involve the police and then consideration will need to be given to long-term placement in a state facility. He certainly did not wish to be considered for this and as such emphasized that he will continue on the medications and follow up with a psychiatrist on an outpatient basis. During this hospital stay he did not exhibit any aggressive or self-destructive behavior nor did he make any threats of harm to self or others. I also reviewed his condition with Dr. Clayton his outpatient psychiatrist and gave him input in regards to the treatment approach. So at this time he is felt to have received optimum benefit out of this admission and is being discharged home to his parents. I had telephone conversation with his mother today and she also concurred that the patient had improved significantly and supported his request for discharge. It is worth mentioning that during this hospital stay he displayed more depression than hypomania which he had displayed during previous hospitalizations. He responded very well to Wellbutrin. At the time of discharge he is denying any suicidal or homicidal ideations. He is not exhibiting any acute psychotic symptoms. DISCHARGE MEDICATIONS He is being discharged on following medications: 1. Wellbutrin SR 150 mg one p.o. daily, 14 day supply with one refill. 2. Synthroid 100 micrograms p.o. daily 14 day supply with one refill. 3. Lithobid 600 milligrams p.o. twice a day, #30 with one refill. 4. Risperdal 1 milligrams p.o. three times a day, 14 day supply with one refill. He is to continue outpatient psychiatric follow up with Dr. Clayton, individual psychotherapy and family therapy through [facility]. MD RENA Charles/IZZY /7:05 PM /7:37 PM
== END 2017-07-13 16:00 | disposition home or self-care (01) | DRG 885 ==
LOC: PHED 08:23 → NEDA 06-21 12:33 → H260 06-21 14:08
PROVIDERS: ADMIT Psychiatry & Neurology Psychiatry; ATTEND Psychiatry & Neurology Psychiatry
DX: F31.64 Bipolar disorder, current episode mixed, severe, with psychotic features (principal); Z91.14 Patient's other noncompliance with medication regimen; F84.5 Asperger's syndrome; E03.9 Hypothyroidism, unspecified; Z88.0 Allergy status to penicillin
CPT/HCPCS: 80048; 80053; 80061; 80178; 80307; 83036; 84439; 84443; 85025; 93005; 96374; J1630